=== PATIENT | female | born 1985 | race Two or more races ===

== ENCOUNTER → 2016-06-09 | Outpatient (CLI) | payer MEDICARE, OTHER, MEDICAID | LOC: RAD 08:00 | PROVIDERS: ATTEND Family Medicine | DX: R77.0 Abnormality of albumin (principal) | CPT/HCPCS: 76700; 93976 ==

== ENCOUNTER 2016-09-22 12:04 | Inpatient (IN) | payer MEDICARE, OTHER, MEDICAID ==
--- NOTE | 2016-09-22 13:14 | ER Document Report ---
ED Medical Screen (RME) - General Mode of Arrival: Wheelchair Information source: Relative - caretakers TRAVEL OUTSIDE OF THE [place] IN LAST 30 DAYS: No - HPI Patient complains to provider of: Fever and cough Onset: Yesterday Associated Symptoms: Other - see notes above <JUICE HIGGINS - Last Filed: 09/22/16 13:55> <BRITTNEY LOPEZ - Last Filed: 09/22/16 21:31> - General Chief Complaint: Fever Stated Complaint: CHEST CONGESTION Time Seen by Provider: 09/22/16 12:58 Notes: 30 year old female with history of epilepsy, cerebral palsy, and [place] presents to the ED accompanied with caregivers who state the patient started a productive cough with yellow sputum and a fever yesterday. Caregivers also state that the patient looks pale. Patient has not missed any of her medications. (JUICE HIGGINS) - Related Data Allergies/Adverse Reactions: Benzodiazepines Allergy (Verified 09/22/16 16:59) chloral hydrate [Chloral Hydrate] Allergy (Verified 09/22/16 16:59) topiramate [From Topamax] Allergy (Verified 09/22/16 16:59) Past Medical History - General Information source: Relative - caregivers, Outside Facility Records - Social History Family history: Reviewed & Not Pertinent - Past Medical History Cardiac Medical History: Reports: Hx Heart Attack Neurological Medical History: Reports: Hx Seizures, Other - cerebral palsy Renal/ Medical History: Denies: Hx Peritoneal Dialysis - Immunizations Hx Diphtheria, Pertussis, Tetanus Vaccination: Yes <JUICE HIGGINS - Last Filed: 09/22/16 13:55> Review of Systems - Review of Systems Constitutional: See HPI, Fever EENT: No symptoms reported Cardiovascular: No symptoms reported Respiratory: See HPI, Cough, Sputum - yellow Gastrointestinal: No symptoms reported Genitourinary: No symptoms reported Female Genitourinary: No symptoms reported Musculoskeletal: No symptoms reported Skin: See HPI, Change in color - pale Hematologic/Lymphatic: No symptoms reported Neurological/Psychological: No symptoms reported -: Yes All other systems reviewed and negative <JUICE HIGGINS - Last Filed: 09/22/16 13:55> Physical Exam - General General appearance: Alert, Other - baseline tremor In distress: None - Respiratory Respiratory status: No respiratory distress Breath sounds: Rhonchi - left upper lobe - Cardiovascular Rhythm: Regular Heart sounds: Normal auscultation Murmur: No Friction rub: No Gallop: None auscultated Pulses: Normal: Radial - Abdominal Inspection: Normal Distension: No distension Bowel sounds: Normal Tenderness: Nontender <JUICE HIGGINS - Last Filed: 09/22/16 13:55> Course - Laboratory Result Diagrams: 09/22/16 13:38 09/22/16 13:38 <JUICE HIGGINS - Last Filed: 09/22/16 13:55> - Laboratory Result Diagrams: 09/22/16 13:38 09/22/16 13:38 <BRITTNEY LOPEZ - Last Filed: 09/22/16 21:31> - Vital Signs Vital signs: Temp Pulse Resp BP Pulse Ox 100.4 F 113 H 24 H 104/70 95 09/22/16 16:40 09/22/16 17:41 09/22/16 17:41 09/22/16 17:41 09/22/16 17:41 - Laboratory Laboratory results interpreted by me: 09/22/16 09/22/16 13:38 13:38 WBC 19.6 H Plt Count 142 L Seg Neutrophils % 82.2 H Lymphocytes % 7.4 L Absolute Neutrophils 16.1 H Absolute Monocytes 1.9 H Albumin 3.2 L Doctor's Discharge <JUICE HIGGINS - Last Filed: 09/22/16 13:55> <BRITTNEY LOPEZ - Last Filed: 09/22/16 21:31> - Discharge Clinical Impression: Pneumonia Disposition: ADMITTED INPATIENT Scribe Documentation - Scribe Written by Rhona:: Rhona Calderón, 09/22/2016 1414 acting as scribe for DrMercedes:: Brian <JUICE HIGGINS - Last Filed: 09/22/16 13:55>
[2016-09-22 14:05] LABS: ABSOLUTE BASOPHILS # (AUTO) 0.1 10^3/uL (0.0-0.2); ABSOLUTE LYMPHOCYTES (AUTO) 1.5 10^3/uL (0.5-4.7); ABSOLUTE MONOCYTES (AUTO) 1.9 10^3/uL (0.1-1.4); ABSOLUTE NEUT (AUTO) 16.1 10^3/uL (1.7-8.2); BASOPHILS % (AUTO) 0.3 % (0-2); EOSINOPHILS % (AUTO) 0.2 % (0-6); HEMATOCRIT 40.1 % (36.0-47.0); HEMOGLOBIN 13.2 g/dL (12.0-15.5); HGB HCT DIFFERENCE -0.5; LYMPHOCYTES % (AUTO) 7.4 % (13-45); MEAN CORPUSCULAR VOLUME 97 fl (80-97); MONOCYTES % (AUTO) 9.9 % (3-13); RED BLOOD COUNT 4.13 10^6/uL (3.72-5.28); RED CELL DISTRIBUTION WIDTH 13.4 % (11.5-14.0); SEGMENTED NEUTROPHILS % (AUTO) 82.2 % (42-78); WHITE BLOOD COUNT 19.6 10^3/uL (4.0-10.5)
[2016-09-22 14:17] LABS: ALANINE AMINOTRANSFERASE 25 U/L (9-52); ALBUMIN 3.2 g/dL (3.5-5.0); ALKALINE PHOSPHATASE 46 U/L (38-126); ANION GAP 8 (5-19); ASPARTATE AMINO TRANSFERASE 20 U/L (14-36); BILIRUBIN,DIRECT 0.3 mg/dL (0.0-0.4); BILIRUBIN,TOTAL 0.5 mg/dL (0.2-1.3); BLOOD UREA NITROGEN 15 mg/dL (7-20); CALCIUM 8.5 mg/dL (8.4-10.2); CARBON DIOXIDE 26 mmol/L (22-30); CHLORIDE 104 mmol/L (98-107); CREATININE RESULT 0.54 mg/dL (0.52-1.25); GLUCOSE 85 mg/dL (75-110); POTASSIUM 4.6 mmol/L (3.6-5.0); SODIUM 137.5 mmol/L (137-145); TOTAL PROTEIN 6.6 g/dL (6.3-8.2)
--- NOTE | 2016-09-22 14:26 | RADIOLOGY REPORT (SQ) ---
EXAM DESCRIPTION: CHEST PA/LAT COMPLETED DATE/TIME: 09/22/2016 2:13 pm REASON FOR STUDY: cough, fever COMPARISON: 01/19/2016 EXAM PARAMETERS: NUMBER OF VIEWS: two views TECHNIQUE: Digital Frontal and Lateral radiographic views of the chest acquired. RADIATION DOSE: NA LIMITATIONS: none FINDINGS: LUNGS AND PLEURA: No opacities, masses or pneumothorax. No pleural effusion. MEDIASTINUM AND HILAR STRUCTURES: No masses or contour abnormalities. HEART AND VASCULAR STRUCTURES: Heart normal size. No evidence for failure. BONES: Stable mild thoracic scoliosis. No acute osseous abnormality. HARDWARE: None in the chest. OTHER: No other significant finding. IMPRESSION: NO SIGNIFICANT RADIOGRAPHIC FINDING IN THE CHEST. TECHNICAL DOCUMENTATION: JOB ID: [id number] [employer]- All Rights Reserved
[2016-09-22] MEDS ORDERED: ACETAMINOPHEN SUSP 160 MG/5 ML ORAL SYRING PO ONE (15:05)
--- NOTE | 2016-09-22 15:49 | ER Document Report ---
ED Fever - General Chief Complaint: Fever Stated Complaint: CHEST CONGESTION Time Seen by Provider: 09/22/16 12:58 Mode of Arrival: Wheelchair Notes: patient is a 30-year-old female presents emergency department complaining of cough, fever since yesterday. Care providers from her prison states that she had a presentation similar to this back in 2014 which required hospital admission. He states she has been tolerating room air without any difficulty but when she ambulates her sats dropped into the 80s. ROS positive for productive cough with yellow sputum, shortness of breath, dyspnea on exertion. Denies chest pain. Past medical history significant for developmental disability, cerebral palsy, dystonia, history of cerebrovascular accident, history of trichotillomania, pica PCP is Dr. Sanchez TRAVEL OUTSIDE OF THE [place] IN LAST 30 DAYS: No - Related Data Allergies/Adverse Reactions: Benzodiazepines Allergy (Verified 09/22/16 16:59) chloral hydrate [Chloral Hydrate] Allergy (Verified 09/22/16 16:59) topiramate [From Topamax] Allergy (Verified 09/22/16 16:59) Home Medications: Current Home Medications Cholecalciferol (Vitamin D3) [Vitamin D3 1000 Unit Tablet] 1,000 unit PO DAILY 09/22/16 [History] Divalproex Sodium [Depakote ER 500 mg Tab.sr] 500 mg PO DAILY 09/22/16 [History] Divalproex Sodium [Depakote Er 250 Mg Tablet] 750 mg PO QHS 09/22/16 [History] Fluticasone Propionate [Flonase Nasal Altus 50 Mcg/Altus 16 gm] 1 spray NASL Q12 PRN 09/22/16 [History] Fluvoxamine Maleate 50 mg PO QHS 09/22/16 [History] Levonorgestrel-Ethin Estradiol [Introvale] 1 each PO DAILY 09/22/16 [History] Polyethylene Glycol 3350 [Miralax Powder 17 gm/Packet] 1 packet PO Q48H [History] Prostat Sf Liquids 30 ml PO DAILY 09/22/16 [History] Quetiapine Fumarate [Seroquel 100 mg Tablet] 50 mg PO DAILY 09/22/16 [History] Quetiapine Fumarate [Seroquel 100 mg Tablet] 150 mg PO QHS 09/22/16 [History] Sennosides [Senokotxtra] 17.2 mg PO DAILY 09/22/16 [History] Valacyclovir HCl [Valtrex] 2,000 mg PO BID PRN 09/22/16 [History] Past Medical History - General Information source: Relative - caregivers, Outside Facility Records - Social History Smoking Status: Never Smoker Chew tobacco use (# tins/day): No Frequency of alcohol use: None Drug Abuse: None Family History: Reviewed & Not Pertinent Patient has suicidal ideation: No Patient has homicidal ideation: No - Past Medical History Cardiac Medical History: Reports: Hx Heart Attack Pulmonary Medical History: Reports: Hx Pneumonia Neurological Medical History: Reports: Hx Seizures, Other - cerebral palsy Renal/ Medical History: Denies: Hx Peritoneal Dialysis - Immunizations Hx Diphtheria, Pertussis, Tetanus Vaccination: Yes Review of Systems - Review of Systems -: Yes ROS unobtainable due to patient's medical condition Physical Exam - Vital signs Vitals: Pulse Resp BP Pulse Ox 85 22 H 108/84 92 09/22/16 12:46 09/22/16 12:46 09/22/16 12:46 09/22/16 12:46 - Notes Notes: PHYSICAL EXAM GENERAL: Alert, interacts well. HEAD: Normocephalic, atraumatic. EYES: Pupils equal, round, and reactive to light. Extraocular movements intact. ENT: Oral mucosa moist, tongue midline. NECK: Full range of motion. Supple. Trachea midline. LUNGS: Bilateral rhonchi without wheezing or rales. No respiratory distress. HEART: Regular rate and rhythm. No murmurs, gallops, or rubs. ABDOMEN: Soft, nondistended, nontender. No guarding, rebound, or rigidity.. Bowel sounds present in all 4 quadrants. EXTREMITIES: Moves all 4 extremities spontaneously. No edema, radial and dorsalis pedis pulses 2/4 bilaterally. No cyanosis. NEUROLOGICAL: Alert and oriented to person. SKIN: Warm, dry, normal turgor. No rashes or lesions noted. Course - Re-evaluation Re-evalutation: 09/22/16 19:42 Patient is a 30-year-old female hemodynamic stable, no acute distress and afebrile. Initial rectal temp of 103.4. Patient medicated with Tylenol intent came down to 100.4. Patient with leukocytosis of 19.4. No evidence of consolidation on x-ray. Discussion with PCP given patient's past medical history for severe pneumonia and risk for hospital-acquired pneumonia, Dr. Sanchez agrees with inpatient admission and initiation on IV antibiotics. - Vital Signs Vital signs: Temp Pulse Resp BP Pulse Ox 100.4 F 113 H 24 H 104/70 95 09/22/16 16:40 09/22/16 17:41 09/22/16 17:41 09/22/16 17:41 09/22/16 17:41 - Laboratory Result Diagrams: 09/22/16 13:38 09/22/16 13:38 Laboratory results interpreted by me: 09/22/16 09/22/16 13:38 13:38 WBC 19.6 H Plt Count 142 L Seg Neutrophils % 82.2 H Lymphocytes % 7.4 L Absolute Neutrophils 16.1 H Absolute Monocytes 1.9 H Albumin 3.2 L - Diagnostic Test Radiology reviewed: Image reviewed, Reports reviewed - Consults ramón Time consulted: 15:48 Reason for consultation: 09/22/16 15:49 hospital admission for pneumonia Consulted provider: will see as inpatient Discharge - Discharge Clinical Impression: Pneumonia Qualifiers: Pneumonia type: due to unspecified organism Disposition: ADMITTED INPATIENT Admitting Provider: Ramón Unit Admitted: Telemetry
[2016-09-22] MEDS ORDERED: IPRATROPIUM/ALBUTEROL 0.5-2.5 MG/3 ML AMPUL NEB ONE (15:54)
[2016-09-22] MEDS ORDERED: CEFEPIME 2 GM/D5W RTU 50 ML IV ONE (16:09)
[2016-09-22] MEDS ORDERED: AZITHROMYCIN INJ 500 MG VIAL IV ONE (16:09)
[2016-09-22] MEDS ORDERED: GUAIFENESIN 600 MG TABLET.SA PO ONE (16:10)
[2016-09-22] MEDS ORDERED: ALBUTEROL SULFATE 0.083% NEB 2.5 MG/3 ML AMPUL NEB PRN (16:10)
[2016-09-22] MEDS ORDERED: IPRATROPIUM/ALBUTEROL 0.5-2.5 MG/3 ML AMPUL NEB PRN (16:11)
[2016-09-22] MEDS ORDERED: ACETAMINOPHEN 325 MG TABLET PO PRN (16:11)
[2016-09-22] MEDS ORDERED: NORMAL SALINE 1000 ML 1,000 ML IV PRN (16:11)
[2016-09-22] MEDS ORDERED: FLUTICASONE NASAL SPRAY 50 MCG/SPRY 120 SPRAY/16 GM NASL PRN (17:28)
[2016-09-22] MEDS ORDERED: VALACYCLOVIR HCL 2000 MG PO PRN (17:28)
--- NOTE | 2016-09-22 17:53 | PDOC H&P ---
History of Present Illness Admission Date/PCP: PAUL HIGGINS MD Patient complains of: Fever and cough History of Present Illness: DILLON YAP is a 30 yearThis is a 30-year-old female [facility] with the history of the cerebral palsy mental retardation brought to the emergency department because of the fever and the cough.Initially nursing staff called me about the Patient is Increasing more cough and a fever and and suggest to the emergency department. In the ER patient's fever is 103 patient's chest x-ray was clear the patient's white count was 19 which he suggest most likely underlying pneumonia Past Medical History Pulmonary Medical History: Reports: Pneumonia Neurological Medical History: Reports: Seizures, Other - cerebral palsy Neurological History Note: mental retardation/cebereal plasy GI Medical History: Reports: Gastroesophageal Reflux Disease Social History Smoking Status: Never Smoker Frequency of Alcohol Use: None Hx Recreational Drug Use: No Hx Prescription Drug Abuse: No Family History Family History: Reviewed & Not Pertinent Parental Family History Reviewed: Yes Children Family History Reviewed: Yes Sibling(s) Family History Reviewed.: Yes Medication/Allergy Home Medications: Cholecalciferol (Vitamin D3) [Vitamin D3 1000 Unit Tablet] 1,000 unit PO DAILY 09/22/16 Divalproex Sodium [Depakote ER 500 mg Tab.sr] 500 mg PO DAILY 09/22/16 Divalproex Sodium [Depakote Er 250 Mg Tablet] 750 mg PO QHS 09/22/16 Fluticasone Propionate [Flonase Nasal Hessel 50 Mcg/Hessel 16 gm] 1 spray NASL Q12 PRN 09/22/16 Fluvoxamine Maleate 50 mg PO QHS 09/22/16 Levonorgestrel-Ethin Estradiol [Introvale] 1 each PO DAILY 09/22/16 Polyethylene Glycol 3350 [Miralax Powder 17 gm/Packet] 1 packet PO Q48H Prostat Sf Liquids 30 ml PO DAILY 09/22/16 Quetiapine Fumarate [Seroquel 100 mg Tablet] 50 mg PO DAILY 09/22/16 Quetiapine Fumarate [Seroquel 100 mg Tablet] 150 mg PO QHS 09/22/16 Sennosides [Senokotxtra] 17.2 mg PO DAILY 09/22/16 Valacyclovir HCl [Valtrex] 2,000 mg PO BID PRN 09/22/16 Allergies/Adverse Reactions: Benzodiazepines Allergy (Verified 09/22/16 16:59) chloral hydrate [Chloral Hydrate] Allergy (Verified 09/22/16 16:59) topiramate [From Topamax] Allergy (Verified 09/22/16 16:59) Physical Exam Vital Signs: Temp Pulse Resp BP Pulse Ox 103.4 F H 85 22 H 108/84 92 09/22/16 15:05 09/22/16 12:46 09/22/16 12:46 09/22/16 12:46 09/22/16 12:46 Intake & Output 09/21/16 09/22/16 09/23/16 06:59 06:59 06:59 Weight 53.977 kg General appearance: PRESENT: no acute distress Eye exam: PRESENT: PERRLA Mouth exam: PRESENT: dry mucosa Neck exam: ABSENT: carotid bruit, full ROM, JVD, lymphadenopathy, meningismus, tenderness, thyromegaly, tracheal deviation, tracheostomy, other Respiratory exam: PRESENT: clear to auscultation merari Cardiovascular exam: PRESENT: +S1, +S2 GI/Abdominal exam: PRESENT: normal bowel sounds, soft Extremities exam: ABSENT: pedal edema Neurological exam: PRESENT: alert, awake Psychiatric exam: PRESENT: anxious Skin exam: PRESENT: dry Results Laboratory Results: 09/22/16 13:38 09/22/16 13:38 09/22/16 09/22/16 13:38 13:38 WBC 19.6 H RBC 4.13 Hgb 13.2 Hct 40.1 MCV 97 MCH 32.0 MCHC 33.0 RDW 13.4 Plt Count 142 L Seg Neutrophils % 82.2 H Lymphocytes % 7.4 L Monocytes % 9.9 Eosinophils % 0.2 Basophils % 0.3 Absolute Neutrophils 16.1 H Absolute Lymphocytes 1.5 Absolute Monocytes 1.9 H Absolute Eosinophils 0.0 Absolute Basophils 0.1 Sodium 137.5 Potassium 4.6 Chloride 104 Carbon Dioxide 26 Anion Gap 8 BUN 15 Creatinine 0.54 Est GFR ( Amer) > 60 Est GFR (Non-Af Amer) > 60 Glucose 85 Calcium 8.5 Total Bilirubin 0.5 AST 20 ALT 25 Alkaline Phosphatase 46 Total Protein 6.6 Albumin 3.2 L Impressions: Chest X-Ray 09/22/16 13:14 IMPRESSION: NO SIGNIFICANT RADIOGRAPHIC FINDING IN THE CHEST. Assessment & Plan - Diagnosis (1) Fever Qualifiers: Fever type: unspecified Qualified Code(s): R50.9 - Fever, unspecified Is this a current diagnosis for this admission?: YesPlan: start iv antibiotics We will get the blood culture urine culture and sputum culture and continues to monitor the patient's (2) Pneumonia Qualifiers: Pneumonia type: due to unspecified organism Is this a current diagnosis for this admission?: YesPlan: According to the caregiver patient is not aspirate and other people also sick with the same problem. Will start with the broad-spectrum antibiotic and try to avoid the Levaquin due to the seizures activity but patients took it in the past and according to the caregiver no issue but will cover with the cefepime and Zithromax right now. We will also get the CT of the chest (3) Mental retardation Plan: Currently stable (4) Seizures Is this a current diagnosis for this admission?: YesPlan: Continues all current seizures medications - Time Time Spent: 30 to 50 Minutes Medications reviewed and adjusted accordingly: Yes Anticipated discharge: Other - Inpatient Certification Medical Necessity: Need For IV Fluids, Need for IV Antibiotics Post Hospital Care: D/C Civil Preparedness Coordinator Documentation - Plan Summary Plan Summary: Discussed with the caregiver who usually taking care [facility] the patient in the [facility] and get all information's and discuss about the treatment and the plan and they will deliver the message to the patient's sisters who usually next to the patient's and will talk to her to.
[2016-09-22] MEDS ORDERED: POLYETHYLENE GLYCOL 3350 POWDER 17 GM/1 PACKET PO ONE (19:00)
[2016-09-22] MEDS ORDERED: DIVALPROEX SODIUM 500 MG TAB.SR.24H PO ONE (19:00)
--- NOTE | 2016-09-22 19:05 | RADIOLOGY REPORT (SQ) ---
EXAM DESCRIPTION: CT CHEST WITHOUT COMPLETED DATE/TIME: 09/22/2016 6:55 pm REASON FOR STUDY: fever/cough COMPARISON: Chest radiograph 09/22/2016 TECHNIQUE: CT scan performed of the chest without intravenous contrast. Images reviewed with lung, soft tissue and bone windows. Reconstructed coronal and sagittal MPR images reviewed. All images st ored on PACS. All CT scanners at this facility use dose modulation, iterative reconstruction, and/or weight based d osing when appropriate to reduce radiation dose to as low as reasonably achievable (ALARA). [facility]: Dose Right [facility]: CareDose [facility]: Dose Right [facility]: Teradose 4D [facility]: Smart Mobibeam RADIATION DOSE: Up-to-date CT equipment and radiation dose reduction techniques were employed. CTDIv ol: 8.5 mGy. DLP: 297 mGy-cm. mGy. LIMITATIONS: No technical limitations. FINDINGS: LUNGS AND PLEURA: Minimal linear parenchymal opacity in the right middle lobe. Lungs othe rwise clear. HILAR AND MEDIASTINAL STRUCTURES: No identified masses or abnormal nodes. No obvious aneurysm. HEART AND VASCULAR STRUCTURES: No aneurysm. No pericardial effusion. UPPER ABDOMEN: No significant findings. Limited exam. THYROID AND OTHER SOFT TISSUES: No masses. No adenopathy. BONES: No significant finding. HARDWARE: None in the chest. OTHER: No other significant findings. IMPRESSION: Right middle lobe pneumonia. TECHNICAL DOCUMENTATION: JOB ID: [id number] Quality ID # [id number]: Final reports with documentation of one or more dose reduction techniques (e.g., Au tomated exposure control, adjustment of the mA and/or kV according to patient size, use of iterative reconstruction technique) 2010 [employer]- All Rights Reserved
[2016-09-22] MEDS ORDERED: FLUVOXAMINE MALEATE 50 MG PO SCH (22:00)
[2016-09-22] MEDS ORDERED: VALACYCLOVIR HCL 500 MG TABLET PO SCH (22:00)
[2016-09-22] MEDS ORDERED: VALACYCLOVIR HCL 500 MG TABLET ONE (23:05)
[2016-09-22] MEDS: GUAIFENESIN 600 MG TABLET.SA PO SCH (23:19)
[2016-09-22] MEDS: QUETIAPINE FUMARATE 100 MG TABLET PO SCH (23:19)
[2016-09-23] MEDS: CEFEPIME HCL 1 GM in DEXTROSE 5%-WATER 50 ML IV SCH ×2 (05:34→17:12)
[2016-09-23] MEDS ORDERED: CEFEPIME 1 GM/D5W RTU 50 ML IV SCH (06:00)
[2016-09-23 07:35] LABS: ABSOLUTE EOSINOPHILS # (AUTO) 0.1 10^3/uL (0.0-0.6); ABSOLUTE MONOCYTES (AUTO) 1.1 10^3/uL (0.1-1.4); ABSOLUTE NEUT (AUTO) 11.4 10^3/uL (1.7-8.2); BASOPHILS % (AUTO) 0.3 % (0-2); EOSINOPHILS % (AUTO) 0.8 % (0-6); HEMATOCRIT 32.8 % (36.0-47.0); HGB HCT DIFFERENCE 0.5; LYMPHOCYTES % (AUTO) 13.6 % (13-45); MEAN CORPUSCULAR HEMOGLOBIN 32.4 pg (27.0-33.4); MEAN CORPUSCULAR HGB CONC 33.7 g/dL (32.0-36.0); MEAN CORPUSCULAR VOLUME 96 fl (80-97); MONOCYTES % (AUTO) 7.7 % (3-13); RED BLOOD COUNT 3.42 10^6/uL (3.72-5.28); RED CELL DISTRIBUTION WIDTH 13.1 % (11.5-14.0); SEGMENTED NEUTROPHILS % (AUTO) 77.6 % (42-78); WHITE BLOOD COUNT 14.7 10^3/uL (4.0-10.5)
[2016-09-23 07:40] LABS: HEMOGLOBIN 11.1 g/dL (12.0-15.5)
[2016-09-23 07:50] LABS: ANION GAP 7 (5-19); BLOOD UREA NITROGEN 13 mg/dL (7-20); CALCIUM 7.7 mg/dL (8.4-10.2); CARBON DIOXIDE 23 mmol/L (22-30); CHLORIDE 107 mmol/L (98-107); CREATININE RESULT 0.47 mg/dL (0.52-1.25); GLUCOSE 83 mg/dL (75-110); POTASSIUM 4.2 mmol/L (3.6-5.0); SODIUM 136.6 mmol/L (137-145)
[2016-09-23] MEDS: ENOXAPARIN SODIUM INJ 40 MG/0.4 ML DISP.SYRIN SUBCUT SCH (09:06)
[2016-09-23] MEDS: QUETIAPINE FUMARATE 100 MG TABLET PO SCH ×2 (09:07→21:53)
[2016-09-23] MEDS: AZITHROMYCIN 250 MG TABLET PO SCH (09:07)
[2016-09-23] MEDS: SENNOSIDES/DOCUSATE 8.6-50 MG 1 EACH TABLET PO SCH (09:07)
[2016-09-23] MEDS: CHOLECALCIFEROL (D3) 1,000 UNIT TABLET PO SCH (09:08)
[2016-09-23] MEDS: DIVALPROEX SODIUM 500 MG TAB.SR.24H PO SCH (09:08)
[2016-09-23] MEDS: GUAIFENESIN 600 MG TABLET.SA PO SCH ×2 (09:08→21:53)
[2016-09-23] MEDS ORDERED: (PENDING PHARMACY ID) (Sennosides [Senokot] 17.2 MG) PO SCH (10:00)
[2016-09-23] MEDS ORDERED: LEVONORGESTREL ETHIN ESTRADIOL PO SCH (10:00)
[2016-09-23] MEDS ORDERED: [UNRECOGNIZED DRUG - REMARK] PO SCH (10:00)
[2016-09-23] MEDS ORDERED: LORAZEPAM INJ 2 MG/1 ML VIAL ONE ×2 (11:06→20:31)
[2016-09-23] MEDS ORDERED: HALOPERIDOL LACTATE INJ 5 MG/1 ML VIAL ONE (11:13)
[2016-09-23] MEDS ORDERED: HALOPERIDOL LACTATE INJ 5 MG/1 ML VIAL IM ONE (11:45)
--- NOTE | 2016-09-23 12:36 | PDOC PROGRESS REPORT ---
Subjective Progress Note for:: 09/23/16 Subjective:: Patient's currently doing fair still more agitated with the new environment. Patient's fever is also coming down. Patient's white count is also coming down. Patient is alert awake but very anxious Physical Exam Vital Signs: Temp Pulse Resp BP Pulse Ox 98.4 F 147 H 25 H 94/66 L 96 09/23/16 03:48 09/23/16 11:09 09/23/16 11:09 09/23/16 03:48 09/23/16 03:48 Intake & Output 09/22/16 09/23/16 09/24/16 06:59 06:59 06:59 Intake Total 200 Balance 200 Weight 66 kg General appearance: PRESENT: no acute distress Eye exam: PRESENT: PERRLA Mouth exam: PRESENT: neck supple Respiratory exam: PRESENT: clear to auscultation emrari Cardiovascular exam: PRESENT: +S1, +S2 GI/Abdominal exam: PRESENT: normal bowel sounds, soft. ABSENT: tenderness Neurological exam: PRESENT: alert, awake Psychiatric exam: PRESENT: anxious Skin exam: PRESENT: dry Results Laboratory Results: 09/23/16 07:27 09/23/16 07:27 09/22/16 09/23/16 09/23/16 20:24 00:43 07:27 WBC 14.7 H RBC 3.42 L Hgb 11.1 L D Hct 32.8 L MCV 96 MCH 32.4 MCHC 33.7 RDW 13.1 Plt Count 112 L Seg Neutrophils % 77.6 Lymphocytes % 13.6 Monocytes % 7.7 Eosinophils % 0.8 Basophils % 0.3 Absolute Neutrophils 11.4 H Absolute Lymphocytes 2.0 Absolute Monocytes 1.1 Absolute Eosinophils 0.1 Absolute Basophils 0.0 Sodium Potassium Chloride Carbon Dioxide Anion Gap BUN Creatinine Est GFR ( Amer) Est GFR (Non-Af Amer) Glucose Lactic Acid 2.5 H 1.3 Calcium 09/23/16 07:27 WBC RBC Hgb Hct MCV MCH MCHC RDW Plt Count Seg Neutrophils % Lymphocytes % Monocytes % Eosinophils % Basophils % Absolute Neutrophils Absolute Lymphocytes Absolute Monocytes Absolute Eosinophils Absolute Basophils Sodium 136.6 L Potassium 4.2 Chloride 107 Carbon Dioxide 23 Anion Gap 7 BUN 13 Creatinine 0.47 L Est GFR ( Amer) > 60 Est GFR (Non-Af Amer) > 60 Glucose 83 Lactic Acid Calcium 7.7 L Impressions: Chest CT 09/22/16 00:00 IMPRESSION: Right middle lobe pneumonia. Chest X-Ray 09/22/16 13:14 IMPRESSION: NO SIGNIFICANT RADIOGRAPHIC FINDING IN THE CHEST. Assessment & Plan - Diagnosis (1) Fever Qualifiers: Fever type: unspecified Qualified Code(s): R50.9 - Fever, unspecified Is this a current diagnosis for this admission?: YesPlan: Continues to IV cefepime and Zithromax due to the right-sided pneumonia (2) Pneumonia Qualifiers: Pneumonia type: due to unspecified organism Is this a current diagnosis for this admission?: YesPlan: Continues to IV antibiotic (3) Mental retardation Plan: Currently stable (4) Seizures Is this a current diagnosis for this admission?: YesPlan: Continues all current seizures medications - Time Time Spent with patient: 15-24 minutes Medications reviewed and adjusted accordingly: Yes Anticipated discharge: SNF Within: Other - Inpatient Certification Medical Necessity: Need For IV Fluids, Need for IV Antibiotics Post Hospital Care: D/C Hardener Helper Documentation - Plan Summary Plan Summary: Discussed with the caregiver continues to IV antibiotic patients quite bit agitated and required a some Haldol or some other medications.
[2016-09-23] MEDS ORDERED: HALOPERIDOL LACTATE INJ 5 MG/1 ML VIAL IM PRN (13:22)
[2016-09-23] MEDS ORDERED: VALACYCLOVIR HCL 500 MG TABLET PO ONE (15:00)
[2016-09-23] MEDS: SULFAMETHOXAZOLE/TRIMETHOPRIM 800-160 MG TABLET PO SCH (17:13)
[2016-09-23] MEDS ORDERED: LORAZEPAM INJ 2 MG/1 ML VIAL IM PRN (20:20)
[2016-09-23] MEDS ORDERED: DIPHENHYDRAMINE HCL 25 MG CAPSULE PO PRN (20:25)
[2016-09-24] MEDS: CEFEPIME HCL 1 GM in DEXTROSE 5%-WATER 50 ML IV SCH (05:50)
[2016-09-24] MEDS ORDERED: CEFEPIME HCL 1 GM in DEXTROSE 5%-WATER 50 ML IV ONE (07:30)
[2016-09-24 08:36] LABS: ABSOLUTE EOSINOPHILS # (AUTO) 0.1 10^3/uL (0.0-0.6); ABSOLUTE LYMPHOCYTES (AUTO) 1.8 10^3/uL (0.5-4.7); ABSOLUTE NEUT (AUTO) 6.4 10^3/uL (1.7-8.2); BASOPHILS % (AUTO) 0.3 % (0-2); EOSINOPHILS % (AUTO) 1.1 % (0-6); HEMATOCRIT 33.5 % (36.0-47.0); HEMOGLOBIN 11.2 g/dL (12.0-15.5); HGB HCT DIFFERENCE 0.1; MEAN CORPUSCULAR HEMOGLOBIN 32.5 pg (27.0-33.4); MEAN CORPUSCULAR HGB CONC 33.4 g/dL (32.0-36.0); MEAN CORPUSCULAR VOLUME 97 fl (80-97); MONOCYTES % (AUTO) 10.8 % (3-13); RED BLOOD COUNT 3.44 10^6/uL (3.72-5.28); RED CELL DISTRIBUTION WIDTH 13.5 % (11.5-14.0); SEGMENTED NEUTROPHILS % (AUTO) 68.8 % (42-78); WHITE BLOOD COUNT 9.3 10^3/uL (4.0-10.5)
[2016-09-24 08:44] LABS: ANION GAP 9 (5-19); BLOOD UREA NITROGEN 10 mg/dL (7-20); CALCIUM 7.9 mg/dL (8.4-10.2); CARBON DIOXIDE 22 mmol/L (22-30); CHLORIDE 104 mmol/L (98-107); CREATININE RESULT 0.52 mg/dL (0.52-1.25); GLUCOSE 77 mg/dL (75-110); POTASSIUM 4.1 mmol/L (3.6-5.0); SODIUM 134.8 mmol/L (137-145)
[2016-09-24] MEDS ORDERED: POLYETHYLENE GLYCOL 3350 POWDER 17 GM/1 PACKET PO SCH (10:00)
[2016-09-24] MEDS: QUETIAPINE FUMARATE 100 MG TABLET PO SCH (10:04)
[2016-09-24] MEDS: CHOLECALCIFEROL (D3) 1,000 UNIT TABLET PO SCH (10:06)
[2016-09-24] MEDS: AZITHROMYCIN 250 MG TABLET PO SCH (10:06)
[2016-09-24] MEDS: DIVALPROEX SODIUM 500 MG TAB.SR.24H PO SCH (10:06)
[2016-09-24] MEDS: SULFAMETHOXAZOLE/TRIMETHOPRIM 800-160 MG TABLET PO SCH (10:06)
[2016-09-24] MEDS: SENNOSIDES/DOCUSATE 8.6-50 MG 1 EACH TABLET PO SCH (10:06)
[2016-09-24] MEDS: GUAIFENESIN 600 MG TABLET.SA PO SCH (10:06)
[2016-09-24] MEDS: ENOXAPARIN SODIUM INJ 40 MG/0.4 ML DISP.SYRIN SUBCUT SCH (10:11)
--- NOTE | 2016-09-24 10:57 | RADIOLOGY REPORT (SQ) ---
EXAM DESCRIPTION: CHEST SINGLE VIEW COMPLETED DATE/TIME: 09/24/2016 9:04 am REASON FOR STUDY: pnemonia COMPARISON: CT chest 09/22/2016 Chest films 03/14/2015, 01/19/2016, 09/22/2016 EXAM PARAMETERS: NUMBER OF VIEWS: One view. TECHNIQUE: Single frontal radiographic view of the chest acquired. RADIATION DOSE: NA LIMITATIONS: None. FINDINGS: LUNGS AND PLEURA: No opacities, masses or pneumothorax. No pleural effusion. MEDIASTINUM AND HILAR STRUCTURES: No masses. Contour normal. HEART AND VASCULAR STRUCTURES: Heart normal in size. Normal vasculature. BONES: No acute findings. HARDWARE: None in the chest. OTHER: No other significant finding. IMPRESSION: NO ACUTE RADIOGRAPHIC FINDING IN THE CHEST. TECHNICAL DOCUMENTATION: JOB ID: [id number]
--- NOTE | 2016-09-24 14:31 | PDOC TRANSFER SUMMARY ---
General - Admit/Disc Date/PCP Admission Date/Primary Care Provider: 09/22/16 16:11 PAUL HIGGINS MD Discharge Date: 09/24/16 - Discharge Diagnosis (1) Fever Is this a current diagnosis for this admission?: YesSummary: From the pneumonia all resolved (2) Pneumonia Is this a current diagnosis for this admission?: YesSummary: Patient's finished the 48 hours IV antibiotic and patient's sister willing to take [facility] the [facility] where the patient is to feel more comfortable and not agitated as in the hospital and the patient is currently no fever and chest x-ray is more clear and the discharge to the p.o. antibiotic and a close monitor and is discussed with the care will nurses staff (4) Seizures Is this a current diagnosis for this admission?: YesSummary: Continue his current medications - Additional Information Resuscitation Status: Full Code Discharge Diet: Regular Discharge Activity: Activity As Tolerated Home Medications: Cholecalciferol (Vitamin D3) [Vitamin D3 1000 Unit Tablet] 1,000 unit PO DAILY 09/22/16 Divalproex Sodium [Depakote ER 250 mg Tablet] 750 mg PO QHS 09/22/16 Divalproex Sodium [Depakote ER 500 mg Tab.sr] 500 mg PO DAILY 09/22/16 Fluticasone Propionate [Flonase Nasal Gays 50 Mcg/Gays 16 gm] 1 spray NAREB Q12HP PRN 09/22/16 Fluvoxamine Maleate 50 mg PO QHS 09/22/16 Levonorgestrel-Ethin Estradiol [Introvale 0.15-0.03 mg Tablet] 1 each PO DAILY 09/22/16 Polyethylene Glycol 3350 [Miralax Powder 17 gm/Packet] 1 packet PO Q48H PRN Prostat Sf Liquids 30 ml PO DAILY 09/22/16 Quetiapine Fumarate [Seroquel 100 mg Tablet] 150 mg PO QHS 09/22/16 Quetiapine Fumarate [Seroquel] 50 mg PO DAILY@1400 09/22/16 Sennosides [Senokot] 17.2 mg PO DAILY 09/22/16 Valacyclovir HCl [Valtrex] 2,000 mg PO Q12HP PRN 09/22/16 Azithromycin [Zithromax 250 mg Tablet] 250 mg PO DAILY #3 tablet 09/24/16 Guaifenesin [Mucinex Sr 600 mg Tablet.sa] 600 mg PO Q12 #0 tablet.sa 09/24/16 Sulfamethoxazole/Trimethoprim [Septra-Ds 800-160 mg Tablet] 1 tab PO BID #14 tablet 09/24/16 History of Present Illness Admission Date/PCP: 09/22/16 16:11 PAUL HIGGINS MD History of Present Illness: DILLON YAP is a 30 yearThis is a 30-year-old female [facility] with the history of the cerebral palsy mental retardation brought to the emergency department because of the fever and the cough.Initially nursing staff called me about the Patient is Increasing more cough and a fever and and suggest to the emergency department. In the ER patient's fever is 103 patient's chest x-ray was clear the patient's white count was 19 which he suggest most likely underlying pneumonia Hospital Course Hospital Course: This is a 30-year-old female presented in the emergency department with cough congestion's and the fever and elevated white count and a CT of the chest was done was consistent with the right-sided middle lobe pneumonia. Patient will start on IV cefepime and Zithromax and the patient responds very well with the pneumonia. Patient's white count is normal and the patient's chest x-ray is also stable and patient's fever free. In the hospital patient was very agitated and initially the patient's sisters want to send back to the penitentiary in a very extended discussion with sister about at least give a 48 hours IV antibiotic before the patient's was sent out and white count is getting better and the patient's currently after that feeling much better and as per the patient's family and the patient is currently doing stable we will discharge back to the penitentiary where they can closely monitor the patient and the p.o. antibiotic Patient's heart rate was elevated and seen by cardiology which is related to the more from agitations and the fever which is currently all stable and according to the cardiology no need for further evaluations Discussed with the sister with extensively about all the test results and the plan and the discussed with the [facility] nursing staff and continues to monitor the patient's Use Mucinex twice a day and the Bactrim DS for 7 days Following a one-week repeat the chest x-ray and a CBC If any increasing any fever and increasing any cough or any shortness of breath is to bring it back in the ER Physical Exam Vital Signs: Temp Pulse Resp BP Pulse Ox 98.2 F 74 14 97/43 L 100 09/24/16 05:27 09/24/16 08:00 09/24/16 08:00 09/24/16 05:27 09/24/16 05:27 Intake & Output 09/23/16 09/24/16 09/25/16 06:59 06:59 06:59 Intake Total 200 175 Balance 200 175 Weight 66 kg General appearance: PRESENT: no acute distress Eye exam: PRESENT: PERRLA Respiratory exam: PRESENT: clear to auscultation merari Cardiovascular exam: PRESENT: +S1, +S2 GI/Abdominal exam: PRESENT: normal bowel sounds, soft. ABSENT: tenderness Musculoskeletal exam: PRESENT: ambulatory Neurological exam: PRESENT: alert, awake Skin exam: PRESENT: dry Results Laboratory Results: 09/24/16 07:52 09/24/16 07:52 09/24/16 09/24/16 09/24/16 07:52 07:52 07:52 WBC 9.3 RBC 3.44 L Hgb 11.2 L Hct 33.5 L MCV 97 MCH 32.5 MCHC 33.4 RDW 13.5 Plt Count 123 L Seg Neutrophils % 68.8 Lymphocytes % 19.0 Monocytes % 10.8 Eosinophils % 1.1 Basophils % 0.3 Absolute Neutrophils 6.4 Absolute Lymphocytes 1.8 Absolute Monocytes 1.0 Absolute Eosinophils 0.1 Absolute Basophils 0.0 Sodium 134.8 L Potassium 4.1 Chloride 104 Carbon Dioxide 22 Anion Gap 9 BUN 10 Creatinine 0.52 Est GFR ( Amer) > 60 Est GFR (Non-Af Amer) > 60 Glucose 77 Lactic Acid 1.4 Calcium 7.9 L 09/23/16 03:20 Nasophary (Mrsa Only) MRSA Surveillance Culture - Final NO MRSA RECOVERED Impressions: Chest CT 09/22/16 00:00 IMPRESSION: Right middle lobe pneumonia. Chest X-Ray 09/24/16 06:00 IMPRESSION: NO ACUTE RADIOGRAPHIC FINDING IN THE CHEST. Transfer Plan - Time Spent with Patient Time spent with patient: Greater than 30 Minutes Plan Time Spent: Greater than 30 Minutes - Patient's [facility] the [facility] continues to be on antibiotic continues to monitor the oxygen level and following a 1 week in the office
[2016-09-24 15:26] VITALS: BP 145/81
--- NOTE | 2016-09-24 17:52 | EKG REPORT ---
SEVERITY:- BORDERLINE ECG - SINUS TACHYCARDIA PROBABLE LEFT ATRIAL ABNORMALITY IRBBB : Confirmed by: Modesta Richard 24-Sep-2016 17:52:30
--- NOTE | 2016-09-25 04:04 | CONSULTATION REPORT E ---
Consultation Report NAME: DILLON YAP : 1985 AGE: 30Y DATE: 09/24/2016 429 A TO: ARMANI IBRAHIM M.D. FROM: PAUL HIGGINS M.D. Requesting Physician REASON FOR CONSULTATION: Tachycardia (sinus tachycardia). HISTORY OF PRESENT ILLNESS: The patient is a 30-year-old female, who has a history of cerebral palsy, mental retardation, history of seizures, history of anxiety and panic attacks, was brought to the hospital due to a temperature of 103 degrees Fahrenheit with chills and rigors and also a cough, which is nonproductive. Of note, the patient is mentally retarded. History obtained from the patient's sister who is the healthcare power of trade mark attorney. The patient is FULL CODE. As per the sister, this 30-year-old since one day prior to admission had symptoms of fevers, chills and rigors with temperature up to 102 degrees Fahrenheit and also she had a cough, which was nonproductive. There was no wheezing. She was started on antibiotics for probable pneumonia, although her chest x-ray was clear. Yesterday, the patient's heart rate was in the 130s and at one time the sister states the patient had a panic attack and the heart rate went up to 190s, which would suggest it is sinus tachycardia. There are no complaints of chest pain according to the sister, although it is very hard to communicate with the patient. Review of the monitor shows no arrhythmias, except for sinus tachycardia. PAST MEDICAL HISTORY: Positive for: 1. History of pneumonia in the past. 2. History of seizures. 3. History of cerebral palsy. 4. History of mental retardation. 5. She also has history of gastroesophageal reflux disease. 6. History of anxiety present. 7. History of panic attacks. No history of hypertension, diabetes mellitus, coronary artery disease, congestive heart failure, arrhythmias or syncope. No recent seizures. No history of TIA or CVA. PAST SURGICAL HISTORY: Negative. SOCIAL HISTORY: The patient does not smoke. FAMILY HISTORY: No major illnesses in the family as per the sister. ALLERGIES: The patient is allergic to BENZODIAZEPINE, CHLORAL HYDRATE, TOPIRAMATE. CODE STATUS: The patient is FULL CODE. Her sister is healthcare power of trade mark attorney. MEDICATIONS: 1. Vitamin D3 1000 units p.o. daily. 2. Depakote ER 500 mg tablet p.o. daily in the morning and 750 mg at bedtime. This is an extended release. 3. Flonase nasal spray 50 mcg, 1 spray nasally q.12 hours p.r.n. 4. Fluvoxamine maleate 50 mg p.o. at bedtime. 5. Introvale 1 p.o. daily. 6. Polythene glycol 350. 7. MiraLax 17 grams per packet, 1 packet p.o. q.48 hours. 8. Pro-Stat SF liquid 30 mL p.o. daily. 9. Seroquel 100 mg tablet, 50 mg p.o. daily in the a.m. and 150 mg p.o. at bedtime. 10. *------* 17.2 mg p.o. daily. 11. Valtrex 2000 mg p.o. b.i.d. p.r.n. REVIEW OF SYSTEMS: CONSTITUTIONAL: Difficult to obtain, according to the sister, the patient has been having fevers, chills and rigors. There are no headaches or head injury. HEENT: Eyes: No history of blindness or amaurosis fugax. Ears: No history of hearing loss, no history of recurrent ear infections. Nose: Occasional nasal allergies. No history of nosebleeds. LUNGS: Positive for cough without wheezing and without any sputum production. The patient has past history of pneumonia. No history of sleep apnea. No history of asthma or COPD. CARDIAC: No history of hypertension. No history of congestive heart failure. No history of coronary artery disease. No history of palpitations or syncope. NEUROLOGIC: History of cerebral palsy, mental retardation and seizures. There is no history of TIA or CVA. No recent seizures. PSYCHIATRIC: The patient has history of severe anxiety and panic attacks. GASTROINTESTINAL: No history of GI bleed. The rest of the review of systems is not obtainable. Of note, today the patient is asleep and her heart rate has come down to 30 beats per minute, which is sinus rhythm. PHYSICAL EXAMINATION: GENERAL: Patient is asleep at present. VITAL SIGNS: She is afebrile today. Temperature 98.2 degrees Fahrenheit. Pulse 34 beats/min, blood pressure 97/43 earlier this morning and respirations 16 per minute. O2 saturation 100% on room air. HEENT: Head is atraumatic, normocephalic. The patient appears to be mentally retarded. NECK: Supple. There is no JVD. Carotids are equal. There is no bruit. LUNGS: Show harsh breath sounds without any rhonchi, rales, or wheezing. HEART: S1 and S2 are heard. There is no S3 gallop. There is no S4 gallop. There is a systolic murmur in the left sternal border and apex. There is no rub. ABDOMEN: Soft, nontender. There is no hepatosplenomegaly. Bowel sounds are well heard. EXTREMITIES: Femorals are diminished. Leg pulses are diminished. There is no pedal edema. There is no DVT or cellulitis. The patient has some contractions of the lower extremities. PSYCHIATRIC: At present, the patient is sleepy and not tested. DIAGNOSTIC TEST RESULTS: The patient's chest x-ray is negative. EKG shows sinus tachycardia, incomplete right bundle branch block pattern. The patient's chest CT done on September 22 shows right middle lobe pneumonia. The patient's labs showed white count of 9300, hemoglobin 11.2, hematocrit 33.5 and platelet count 123,000. Earlier on day of admission on September 22, the patient's white count was 19,600, hemoglobin 13.2, hematocrit 40.1 and platelet count 142,000. The patient's sodium 134.8, potassium 4.1, chloride 104, CO2 22, BUN 10, creatinine 0.52, GFR greater than 60, glucose 77, calcium 7.9. The rest of the labs noted. IMPRESSION: 1. TACHYCARDIA. This is due to the patient's fever, pneumonia and cough, and also due to anxiety and panic attacks. This is a physiological response and would treat the cause. 2. RIGHT MIDDLE LOBE PNEUMONIA. Continue antibiotics. 3. HISTORY OF CEREBRAL PALSY. 4. MENTAL RETARDATION. 5. SYSTOLIC MURMUR. 6. HISTORY OF SEIZURES. 7. HISTORY OF GASTROESOPHAGEAL REFLUX DISEASE. RECOMMENDATIONS: At present no cardiac intervention needed. Note, attempts to get an echo were unsuccessful since the patient would not cooperate. TIME SPENT: Thirty minutes spent on this patient with more than 50% of the time spent on direct patient care and also discussion with patient's sister. This is a low complexity medical decision making case since the sinus tachycardia cause is very straightforward and apparent. We will sign off the case, no further cardiac workup is needed. Thanking you. DICTATING PHYSICIAN: ARMANI IBRAHIM M.D. [id number] PHY#: [id number] ID: [id number] JOB#: [id number] ACCT: [id number] cc:ARMANI IBRAHIM M.D. >
== END 2016-09-24 15:46 | disposition home health service (06) | DRG 195 ==
LOC: ER 12:04 → EH 16:11 → UNDOADMIN 16:40 → 4S 19:03
PROVIDERS: ADMIT Family Medicine; ATTEND Family Medicine
PROC: 3E0F73Z Introduction of Anti-inflammatory into Respiratory Tract, Via Natural or Artificial Opening (ICD-10-PCS; principal; 2016-09-23)
DX: J18.9 Pneumonia, unspecified organism (principal); G80.9 Cerebral palsy, unspecified; F79 Unspecified intellectual disabilities; K21.9 Gastro-esophageal reflux disease without esophagitis; G40.909 Epilepsy, unspecified, not intractable, without status epilepticus; F41.9 Anxiety disorder, unspecified; R00.0 Tachycardia, unspecified; R01.1 Cardiac murmur, unspecified; Z79.899 Other long term (current) drug therapy; Z88.8 Allergy status to other drugs, medicaments and biological substances
CPT/HCPCS: 36415; 71010; 71020; 71250; 80048; 80053; 83605; 85025; 87040; 93005; 93010; 94640; 99285; J0456; J0692; J1630; J1650; J2060; J3490; J7030; J7620

== ENCOUNTER → 2016-09-30 | Outpatient (CLI) | payer MEDICARE, OTHER, MEDICAID ==
--- NOTE | 2016-09-30 11:44 | RADIOLOGY REPORT (SQ) ---
EXAM DESCRIPTION: CHEST SINGLE VIEW COMPLETED DATE/TIME: 09/30/2016 11:22 am REASON FOR STUDY: PNEUMONIA, UNSPECIFIED ORGANISM COMPARISON: CT chest 09/22/2016 Chest films 09/22/2016, 09/24/2016 EXAM PARAMETERS: NUMBER OF VIEWS: One view. TECHNIQUE: Single frontal radiographic view of the chest acquired. RADIATION DOSE: NA LIMITATIONS: None. FINDINGS: LUNGS AND PLEURA: No opacities, masses or pneumothorax. No pleural effusion. MEDIASTINUM AND HILAR STRUCTURES: No masses. Contour normal. HEART AND VASCULAR STRUCTURES: Heart normal in size. Normal vasculature. BONES: No acute findings. HARDWARE: None in the chest. OTHER: No other significant finding. IMPRESSION: NO ACUTE RADIOGRAPHIC FINDING IN THE CHEST. TECHNICAL DOCUMENTATION: JOB ID: [id number]
== END ==
LOC: OD 11:03
PROVIDERS: ATTEND Family Medicine
DX: J18.9 Pneumonia, unspecified organism (principal)
CPT/HCPCS: 71010

== ENCOUNTER 2016-11-25 13:27 | Inpatient (IN) | payer MEDICARE, OTHER, MEDICAID ==
--- NOTE | 2016-11-25 13:42 | ER Document Report ---
ED Medical Screen (RME) - General Chief Complaint: Respiratory Distress Stated Complaint: COUGH Time Seen by Provider: 11/25/16 13:37 Notes: Patient started with a vigorous cough yesterday. Today, she is running a fever of 101.6 and her oxygen levels are between 60 and 70% saturation. She has a history of pneumonia a couple of months ago with similar symptoms and signs at that time. Patient lives in a facility for special needs patients. She has a history of CP. It is not cooperative for evaluation or care. TRAVEL OUTSIDE OF THE [place] IN LAST 30 DAYS: No - Related Data Allergies/Adverse Reactions: Benzodiazepines Allergy (Verified 09/22/16 16:59) chloral hydrate [Chloral Hydrate] Allergy (Verified 09/22/16 16:59) topiramate [From Topamax] Allergy (Verified 09/22/16 16:59) Past Medical History - Social History Chew tobacco use (# tins/day): No Frequency of alcohol use: None Drug Abuse: None Family history: Reviewed & Not Pertinent - Past Medical History Cardiac Medical History: Reports: Hx Heart Attack Pulmonary Medical History: Reports: Hx Pneumonia Neurological Medical History: Reports: Hx Seizures Renal/ Medical History: Denies: Hx Peritoneal Dialysis GI Medical History: Reports: Hx Gastroesophageal Reflux Disease - Immunizations Hx Diphtheria, Pertussis, Tetanus Vaccination: Yes Physical Exam - Vital signs Vitals: Pulse Resp Pulse Ox 121 H 32 H 86 L 11/25/16 13:28 11/25/16 13:28 11/25/16 13:28 Course - Vital Signs Vital signs: Temp Pulse Resp BP Pulse Ox 101 H 24 H 86 L 11/25/16 13:30 11/25/16 13:30 11/25/16 13:30
--- NOTE | 2016-11-25 14:13 | ER Document Report ---
ED Respiratory Problem - General Chief Complaint: Respiratory Distress Stated Complaint: COUGH Time Seen by Provider: 11/25/16 13:37 Notes: The patient is a 31-year-old female, past medical history cerebral palsy, frequent pneumonias, presents from Dr. Higgins's office after her oxygen was noticed to be 50-60% on room air. She also is having a productive cough and is tachypneic. Her temperature was 101.6 at her primary care's office. Patient is unable to provide any history. Her home MYSQL DATABASE ADMINISTRATOR said that patient is acting at baseline. TRAVEL OUTSIDE OF THE [place] IN LAST 30 DAYS: No - Related Data Allergies/Adverse Reactions: Benzodiazepines Allergy (Verified 09/22/16 16:59) chloral hydrate [Chloral Hydrate] Allergy (Verified 09/22/16 16:59) topiramate [From Topamax] Allergy (Verified 09/22/16 16:59) Past Medical History - General Information source: Emergency Med Personnel, Office Cannot obtain history due to: Mentally challenged - Social History Smoking Status: Never Smoker Chew tobacco use (# tins/day): No Frequency of alcohol use: None Drug Abuse: None Family History: Reviewed & Not Pertinent - Past Medical History Cardiac Medical History: Reports: Hx Heart Attack Pulmonary Medical History: Reports: Hx Pneumonia Neurological Medical History: Reports: Hx Seizures Renal/ Medical History: Denies: Hx Peritoneal Dialysis GI Medical History: Reports: Hx Gastroesophageal Reflux Disease - Immunizations Hx Diphtheria, Pertussis, Tetanus Vaccination: Yes Review of Systems - Review of Systems -: Yes ROS unobtainable due to patient's medical condition Constitutional: Fever Respiratory: Cough, Short of breath Physical Exam - Vital signs Vitals: Pulse Resp Pulse Ox 121 H 32 H 86 L 11/25/16 13:28 11/25/16 13:28 11/25/16 13:28 - Notes Notes: PHYSICAL EXAMINATION: GENERAL: Well-appearing, well-nourished and in no acute distress. Mildly agitated. HEAD: Atraumatic, normocephalic. EYES: Pupils equal round and reactive to light, extraocular movements intact, sclera anicteric, conjunctiva are normal. ENT: nares patent, oropharynx clear without exudates. Moist mucous membranes. NECK: Normal range of motion, supple without lymphadenopathy LUNGS: Tachypnea. Coarse breath sounds and crackles in RLL. HEART: Tachycardia. Regular rhythm. ABDOMEN: Soft, nontender, normoactive bowel sounds. No guarding, no rebound. No masses appreciated. EXTREMITIES: Normal range of motion, no pitting or edema. No cyanosis. NEUROLOGICAL: Cranial nerves grossly intact. Moving all 4 extremities. SKIN: Warm, Dry, normal turgor, no rashes or lesions noted. Course - Re-evaluation Re-evalutation: Patient clinically has evidence of right lower lobe pneumonia with crackles, tachypnea, hypoxia, cough and fevers. Her oxygenation improved with 4 L nasal cannula patient does not appear to be in any respiratory distress. CAP Abx started and patient will require admission for further evaluation and treatment. 11/25/16 16:[address] Higgins and will admit patient to [facility] as Inpatient. - Vital Signs Vital signs: Temp Pulse Resp BP Pulse Ox 101 H 34 H 131/73 H 100 11/25/16 13:30 11/25/16 16:01 11/25/16 15:23 11/25/16 16:01 - Laboratory Result Diagrams: 11/25/16 15:00 11/25/16 15:00 Laboratory results interpreted by me: 11/25/16 11/25/16 11/25/16 15:00 15:00 15:00 WBC 14.4 H Plt Count 145 L Seg Neutrophils % 82.9 H Lymphocytes % 7.1 L Absolute Neutrophils 11.9 H VBG pH VBG pCO2 Sodium 132.5 L Creatinine 0.51 L Alkaline Phosphatase 37 L NT-Pro-B Natriuret Pep 320 H Albumin 3.2 L 11/25/16 15:00 WBC Plt Count Seg Neutrophils % Lymphocytes % Absolute Neutrophils VBG pH 7.48 H VBG pCO2 34.1 L Sodium Creatinine Alkaline Phosphatase NT-Pro-B Natriuret Pep Albumin - Diagnostic Test Radiology reviewed: Image reviewed, Reports reviewed Radiology results interpreted by me: CXR: NAD - EKG Interpretation by Me EKG shows normal: Sinus rhythm, [place], Intervals, QRS Complexes, ST-T Waves Rate: Tachycardia When compared to previous EKG there are: No significant change Discharge - Discharge Clinical Impression: Hypoxia Pneumonia Qualifiers: Pneumonia type: due to unspecified organism Laterality: right Lung location: lower lobe of lung Qualified Code(s): J18.1 - Lobar pneumonia, unspecified organism Sepsis Qualifiers: Sepsis type: sepsis due to unspecified organism Qualified Code(s): A41.9 - Sepsis, unspecified organism Condition: Stable Disposition: ADMITTED INPATIENT Admitting Provider: Daniel Unit Admitted: Telemetry Referrals: PAUL HIGGINS MD [Primary Care Provider] - Follow up as needed
[2016-11-25] MEDS ORDERED: ACETAMINOPHEN SUSP 160 MG/5 ML ORAL SYRING PO ONE (14:31)
[2016-11-25] MEDS ORDERED: MIDAZOLAM HCL INJ 5 MG/1 ML VIAL NASL ONE ×2 (14:34→14:56)
[2016-11-25] MEDS ORDERED: MIDAZOLAM 2 MG/2 ML INJ ONE (14:35)
[2016-11-25] MEDS ORDERED: AZITHROMYCIN INJ 500 MG VIAL IV ONE (14:46)
[2016-11-25] MEDS ORDERED: CEFTRIAXONE 1 GM/D5W RTU 1 GM/50 ML RTUPB IV ONE (14:46)
[2016-11-25] MEDS: NORMAL SALINE 1000 ML 1,000 ML IV PRN ×2 (14:52→15:04)
[2016-11-25 15:16] LABS: ABSOLUTE MONOCYTES (AUTO) 1.4 10^3/uL (0.1-1.4); ABSOLUTE NEUT (AUTO) 11.9 10^3/uL (1.7-8.2); BASOPHILS % (AUTO) 0.2 % (0-2); EOSINOPHILS % (AUTO) 0.1 % (0-6); HEMATOCRIT 37.7 % (36.0-47.0); HEMOGLOBIN 12.9 g/dL (12.0-15.5); LYMPHOCYTES % (AUTO) 7.1 % (13-45); MEAN CORPUSCULAR HEMOGLOBIN 32.9 pg (27.0-33.4); MEAN CORPUSCULAR HGB CONC 34.3 g/dL (32.0-36.0); MEAN CORPUSCULAR VOLUME 96 fl (80-97); MONOCYTES % (AUTO) 9.7 % (3-13); RED BLOOD COUNT 3.93 10^6/uL (3.72-5.28); RED CELL DISTRIBUTION WIDTH 13.2 % (11.5-14.0); SEGMENTED NEUTROPHILS % (AUTO) 82.9 % (42-78); WHITE BLOOD COUNT 14.4 10^3/uL (4.0-10.5)
[2016-11-25 15:22] LABS: VENOUS BLOOD BASE EXCESS 1.6 mmol/L; VENOUS BLOOD HCO3 24.7 mmol/L (20-32); VENOUS BLOOD PCO2 34.1 mmHg (35-63); VENOUS BLOOD PH 7.48 (7.30-7.42)
[2016-11-25 15:32] LABS: ALANINE AMINOTRANSFERASE 17 U/L (9-52); ALBUMIN 3.2 g/dL (3.5-5.0); ALKALINE PHOSPHATASE 37 U/L (38-126); ANION GAP 8 (5-19); ASPARTATE AMINO TRANSFERASE 20 U/L (14-36); BILIRUBIN,DIRECT 0.4 mg/dL (0.0-0.4); BILIRUBIN,TOTAL 0.7 mg/dL (0.2-1.3); BLOOD UREA NITROGEN 16 mg/dL (7-20); CALCIUM 8.7 mg/dL (8.4-10.2); CARBON DIOXIDE 25 mmol/L (22-30); CHLORIDE 100 mmol/L (98-107); CREATINE KINASE 40 U/L (30-135); CREATININE RESULT 0.51 mg/dL (0.52-1.25); GLUCOSE 82 mg/dL (75-110); POTASSIUM 4.4 mmol/L (3.6-5.0); SODIUM 132.5 mmol/L (137-145); TOTAL PROTEIN 6.4 g/dL (6.3-8.2)
[2016-11-25 15:45] LABS: TROPONIN I < 0.012 ng/mL
[2016-11-25] MEDS ORDERED: ACETAMINOPHEN 325 MG TABLET PO PRN (16:52)
[2016-11-25] MEDS ORDERED: NORMAL SALINE 1000 ML 1,000 ML IV PRN (16:52)
--- NOTE | 2016-11-25 17:08 | PDOC H&P ---
History of Present Illness Admission Date/PCP: PAUL HIGGINS MD Patient complains of: fever/hypoxia History of Present Illness: DILLON YAP is a 31 year old female This is a 31-year-old female currently a resident of the [facility] with a history of the cerebral palsy mental retardation's with the history of the recurrent pneumonia recently admitting in the hospital in 2 months back came to the my officeWith the complaint of fever 101 and the patient 's oxygen level was a 70-80% and patient was put on oxygen and patient was transferred to the emergency departmentIn the emergency department workup with the elevated white count and possible pneumonia and admitting the hospital for further evaluation and treatment Was doing okayPatient's according to the caregiver since yesterday he could be a possible small aspirations but patient does not have any PEG tubeAnd no seizures activity Past Medical History Pulmonary Medical History: Reports: Pneumonia Neurological Medical History: Reports: Seizures GI Medical History: Reports: Gastroesophageal Reflux Disease Psychiatric Medical History: Reports: Other Social History Smoking Status: Never Smoker Frequency of Alcohol Use: None Hx Recreational Drug Use: No Drugs: None Hx Prescription Drug Abuse: No Family History Family History: Reviewed & Not Pertinent Parental Family History Reviewed: Yes Children Family History Reviewed: Yes Sibling(s) Family History Reviewed.: Yes Medication/Allergy Home Medications: Cholecalciferol (Vitamin D3) [Vitamin D3 1000 Unit Tablet] 1,000 unit PO DAILY 09/22/16 Divalproex Sodium [Depakote ER 250 mg Tablet] 750 mg PO QHS 09/22/16 Divalproex Sodium [Depakote ER 500 mg Tab.sr] 500 mg PO DAILY 09/22/16 Fluticasone Propionate [Flonase Nasal [place] 50 Mcg/[place] 16 gm] 1 spray NAREB Q12HP PRN 09/22/16 Fluvoxamine Maleate 50 mg PO QHS 09/22/16 Levonorgestrel-Ethin Estradiol [Introvale 0.15-0.03 mg Tablet] 1 each PO DAILY 09/22/16 Polyethylene Glycol 3350 [Miralax Powder 17 gm/Packet] 1 packet PO Q48H PRN Prostat Sf Liquids 30 ml PO DAILY 09/22/16 Quetiapine Fumarate [Seroquel 100 mg Tablet] 150 mg PO QHS 09/22/16 Quetiapine Fumarate [Seroquel] 50 mg PO DAILY@1400 09/22/16 Sennosides [Senokot] 17.2 mg PO DAILY 09/22/16 Valacyclovir HCl [Valtrex] 2,000 mg PO Q12HP PRN 09/22/16 Azithromycin [Zithromax 250 mg Tablet] 250 mg PO DAILY #3 tablet 09/24/16 Guaifenesin [Mucinex Sr 600 mg Tablet.sa] 600 mg PO Q12 #0 tablet.sa 09/24/16 Sulfamethoxazole/Trimethoprim [Septra-Ds 800-160 mg Tablet] 1 tab PO BID #14 tablet 09/24/16 Allergies/Adverse Reactions: Benzodiazepines Allergy (Verified 09/22/16 16:59) chloral hydrate [Chloral Hydrate] Allergy (Verified 09/22/16 16:59) topiramate [From Topamax] Allergy (Verified 09/22/16 16:59) Review of Systems ROS unobtainable: Due to mental status All systems: reviewed and no additional remarkable complaints except as stated Physical Exam Vital Signs: Temp Pulse Resp BP Pulse Ox 99.3 F 101 H 22 H 115/96 H 100 11/25/16 16:59 11/25/16 13:30 11/25/16 16:40 11/25/16 16:40 11/25/16 16:40 Intake & Output 11/24/16 11/25/16 11/26/16 06:59 06:59 06:59 Weight 53.07 kg General appearance: PRESENT: mild distress Eye exam: PRESENT: PERRLA Neck exam: ABSENT: carotid bruit, full ROM, JVD, lymphadenopathy, meningismus, tenderness, thyromegaly, tracheal deviation, tracheostomy, other Respiratory exam: PRESENT: decreased breath sounds, rhonchi, tachypnea Cardiovascular exam: PRESENT: +S1, +S2, tachycardia GI/Abdominal exam: PRESENT: normal bowel sounds, soft. ABSENT: tenderness Extremities exam: ABSENT: pedal edema Musculoskeletal exam: PRESENT: ambulatory Neurological exam: PRESENT: alert, awake Psychiatric exam: PRESENT: agitated, anxious Skin exam: PRESENT: dry Results Laboratory Results: 11/25/16 15:00 11/25/16 15:00 11/25/16 11/25/16 11/25/16 15:00 15:00 15:00 WBC 14.4 H RBC 3.93 Hgb 12.9 Hct 37.7 MCV 96 MCH 32.9 MCHC 34.3 RDW 13.2 Plt Count 145 L Seg Neutrophils % 82.9 H Lymphocytes % 7.1 L Monocytes % 9.7 Eosinophils % 0.1 Basophils % 0.2 Absolute Neutrophils 11.9 H Absolute Lymphocytes 1.0 Absolute Monocytes 1.4 Absolute Eosinophils 0.0 Absolute Basophils 0.0 VBG pH VBG pCO2 VBG HCO3 VBG Base Excess Sodium 132.5 L Potassium 4.4 Chloride 100 Carbon Dioxide 25 Anion Gap 8 BUN 16 Creatinine 0.51 L Est GFR ( Amer) > 60 Est GFR (Non-Af Amer) > 60 Glucose 82 Lactic Acid Calcium 8.7 Total Bilirubin 0.7 AST 20 ALT 17 Alkaline Phosphatase 37 L Total Protein 6.4 Albumin 3.2 L Serum HCG, Qual NEGATIVE 11/25/16 11/25/16 15:00 15:00 WBC RBC Hgb Hct MCV MCH MCHC RDW Plt Count Seg Neutrophils % Lymphocytes % Monocytes % Eosinophils % Basophils % Absolute Neutrophils Absolute Lymphocytes Absolute Monocytes Absolute Eosinophils Absolute Basophils VBG pH 7.48 H VBG pCO2 34.1 L VBG HCO3 24.7 VBG Base Excess 1.6 Sodium Potassium Chloride Carbon Dioxide Anion Gap BUN Creatinine Est GFR ( Amer) Est GFR (Non-Af Amer) Glucose Lactic Acid 2.0 Calcium Total Bilirubin AST ALT Alkaline Phosphatase Total Protein Albumin Serum HCG, Qual 11/25/16 11/25/16 15:00 15:00 Creatine Kinase 40 Troponin I < 0.012 NT-Pro-B Natriuret Pep 320 H Assessment & Plan - Diagnosis (1) Hypoxia Is this a current diagnosis for this admission?: Yes Plan: Most likely due to underlying pneumonia will continues to follow her oxygen at the CT of the chest and we consult the pulmonary for further evaluations (2) Pneumonia Qualifiers: Pneumonia type: due to unspecified organism Laterality: right Lung location: lower lobe of lung Qualified Code(s): J18.1 - Lobar pneumonia, unspecified organism Is this a current diagnosis for this admission?: Yes Plan: Start the patient on IV cefepime and Zithromax and also cover with the Flagyl (3) Fever Qualifiers: Fever type: unspecified Qualified Code(s): R50.9 - Fever, unspecified Is this a current diagnosis for this admission?: Yes Plan: Will get the blood culture and sputum culture urine culture start the patient on IV antibiotic (4) Mental retardation Is this a current diagnosis for this admission?: Yes (5) Seizures Is this a current diagnosis for this admission?: Yes Plan: Continues to current medications - Time Time Spent: 30 to 50 Minutes Medications reviewed and adjusted accordingly: Yes Anticipated discharge: Other Within: Other - Inpatient Certification Medical Necessity: Need For IV Fluids, Need for IV Antibiotics 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
[2016-11-25] MEDS ORDERED: ENOXAPARIN SODIUM INJ 40 MG/0.4 ML DISP.SYRIN SUBCUT ONE (18:00)
--- NOTE | 2016-11-25 20:25 | EKG REPORT ---
SEVERITY:- BORDERLINE ECG - SINUS TACHYCARDIA NONSPECIFIC ST-T CHANGES- INFERIOR LEADS : Confirmed by: Keaton Florence MD 25-Nov-2016 20:24:11
[2016-11-25] MEDS: LEVALBUTEROL HCL NEB 1.25 MG/3 ML AMPUL NEB SCH (20:40)
[2016-11-25] MEDS: BUDESONIDE NEB 0.5 MG/2 ML AMPUL NEB SCH (20:41)
[2016-11-25] MEDS ORDERED: VALACYCLOVIR HCL 2000 MG PO PRN (20:56)
[2016-11-25] MEDS ORDERED: FLUTICASONE NASAL SPRAY 50 MCG/SPRY 120 SPRAY/16 GM NASL PRN (20:56)
[2016-11-25] MEDS ORDERED: VALACYCLOVIR HCL 500 MG TABLET PO PRN (21:02)
[2016-11-25 21:06] LABS: ARTERIAL BLOOD BASE EXCESS 0.8 mmol/L
[2016-11-25] MEDS ORDERED: FLUVOXAMINE MALEATE 50 MG PO SCH (22:00)
[2016-11-25] MEDS ORDERED: LEVONORGESTREL ETHIN ESTRADIOL PO SCH (22:00)
[2016-11-25] MEDS ORDERED: CEFEPIME 1 GM/D5W RTU 1 GM/50 ML RTUPB IV SCH (22:00)
[2016-11-25] MEDS: DIVALPROEX SODIUM 250 MG TAB.SR.24H PO SCH (22:02)
[2016-11-25] MEDS: QUETIAPINE FUMARATE 100 MG TABLET PO SCH (22:02)
[2016-11-25] MEDS: POLYETHYLENE GLYCOL 3350 POWDER 17 GM/1 PACKET PO SCH (22:03)
[2016-11-25] MEDS: GUAIFENESIN 600 MG TABLET.SA PO SCH (22:03)
[2016-11-25] MEDS: CEFEPIME HCL 1 GM in DEXTROSE 5%-WATER 50 ML IV SCH (22:03)
[2016-11-25] MEDS: DIVALPROEX SODIUM 500 MG TAB.SR.24H PO SCH (22:03)
[2016-11-26] MEDS: LEVALBUTEROL HCL NEB 1.25 MG/3 ML AMPUL NEB SCH ×4 (02:26→20:25)
[2016-11-26 04:55] LABS: MEAN CORPUSCULAR VOLUME 97 fl (80-97)
[2016-11-26 05:02] LABS: ABSOLUTE LYMPHOCYTES (AUTO) 2.7 10^3/uL (0.5-4.7); ABSOLUTE MONOCYTES (AUTO) 1.1 10^3/uL (0.1-1.4); ABSOLUTE NEUT (AUTO) 5.3 10^3/uL (1.7-8.2); BASOPHILS % (AUTO) 0.5 % (0-2); EOSINOPHILS % (AUTO) 0.5 % (0-6); HEMATOCRIT 30.6 % (36.0-47.0); HGB HCT DIFFERENCE 1.2; LYMPHOCYTES % (AUTO) 29.8 % (13-45); MEAN CORPUSCULAR HEMOGLOBIN 33.4 pg (27.0-33.4); MEAN CORPUSCULAR HGB CONC 34.6 g/dL (32.0-36.0); MONOCYTES % (AUTO) 11.7 % (3-13); RED BLOOD COUNT 3.16 10^6/uL (3.72-5.28); RED CELL DISTRIBUTION WIDTH 13.4 % (11.5-14.0); SEGMENTED NEUTROPHILS % (AUTO) 57.5 % (42-78); WHITE BLOOD COUNT 9.2 10^3/uL (4.0-10.5)
[2016-11-26 05:03] LABS: HEMOGLOBIN 10.6 g/dL (12.0-15.5)
[2016-11-26 05:16] LABS: ALANINE AMINOTRANSFERASE 15 U/L (9-52); ALBUMIN 2.3 g/dL (3.5-5.0); ALKALINE PHOSPHATASE 31 U/L (38-126); ANION GAP 5 (5-19); ASPARTATE AMINO TRANSFERASE 22 U/L (14-36); BILIRUBIN,DIRECT 0.3 mg/dL (0.0-0.4); BILIRUBIN,TOTAL 0.5 mg/dL (0.2-1.3); BLOOD UREA NITROGEN 13 mg/dL (7-20); CALCIUM 7.7 mg/dL (8.4-10.2); CARBON DIOXIDE 24 mmol/L (22-30); CHLORIDE 107 mmol/L (98-107); CREATININE RESULT 0.45 mg/dL (0.52-1.25); GLUCOSE 83 mg/dL (75-110); POTASSIUM 4.1 mmol/L (3.6-5.0); SODIUM 135.9 mmol/L (137-145); TOTAL PROTEIN 5.2 g/dL (6.3-8.2)
[2016-11-26] MEDS: BUDESONIDE NEB 0.5 MG/2 ML AMPUL NEB SCH ×2 (09:05→20:25)
[2016-11-26] MEDS: ENOXAPARIN SODIUM INJ 40 MG/0.4 ML DISP.SYRIN SUBCUT SCH (09:51)
[2016-11-26] MEDS: DIVALPROEX SODIUM 500 MG TAB.SR.24H PO SCH ×2 (09:52→21:45)
[2016-11-26] MEDS: GUAIFENESIN 600 MG TABLET.SA PO SCH ×2 (09:53→21:45)
[2016-11-26] MEDS: CEFEPIME HCL 1 GM in DEXTROSE 5%-WATER 50 ML IV SCH ×2 (09:53→21:45)
[2016-11-26] MEDS: CHOLECALCIFEROL (D3) 1,000 UNIT TABLET PO SCH (09:53)
[2016-11-26] MEDS ORDERED: (PENDING PHARMACY ID) (Sennosides [Senna] 2 TAB) PO SCH (10:00)
[2016-11-26] MEDS ORDERED: PROTEIN SUPPLEMENT PO SCH (10:00)
[2016-11-26] MEDS ORDERED: LORAZEPAM 0.5 MG TABLET PO PRN (11:55)
[2016-11-26] MEDS: AZITHROMYCIN 500 MG in DEXTROSE 5%-WATER 250 ML IV SCH (12:13)
[2016-11-26] MEDS ORDERED: NORMAL SALINE 1000 ML 1,000 ML IV PRN (14:26)
--- NOTE | 2016-11-26 14:29 | PDOC PROGRESS REPORT ---
Subjective Progress Note for:: 11/26/16 Subjective:: Patient is feeling much better this morning no fever Cough is also improving Sister is on bedside Physical Exam Vital Signs: Temp Pulse Resp BP Pulse Ox 100.8 F H 112 H 18 100/60 100 11/26/16 12:00 11/26/16 14:03 11/26/16 14:03 11/26/16 12:00 11/26/16 12:00 Pulse Oximeter Continuous Start: 11/25/16 16: 59 Freq: RTQ4 Status: Active Document 11/26/16 12:00 [facility] (Rec: 11/26/16 14:09 [facility] [email or web address]) Pulse Oximetry Assessment Equipment Usage Equipment Standby Continuous SpO2 Machine # 2 Intake & Output 11/25/16 11/26/16 11/27/16 06:59 06:59 06:59 Intake Total 1240 Balance 1240 Weight 53.07 kg General appearance: PRESENT: no acute distress Eye exam: PRESENT: PERRLA Respiratory exam: PRESENT: clear to auscultation merari Cardiovascular exam: PRESENT: +S1, +S2 GI/Abdominal exam: PRESENT: normal bowel sounds, soft Extremities exam: ABSENT: pedal edema Neurological exam: PRESENT: alert, awake Psychiatric exam: PRESENT: anxious Results Laboratory Results: 11/26/16 04:04 11/26/16 04:04 11/25/16 11/26/16 11/26/16 20:45 04:04 04:04 WBC 9.2 RBC 3.16 L Hgb 10.6 L D Hct 30.6 L MCV 97 MCH 33.4 MCHC 34.6 RDW 13.4 Plt Count 102 L Seg Neutrophils % 57.5 Lymphocytes % 29.8 Monocytes % 11.7 Eosinophils % 0.5 Basophils % 0.5 Absolute Neutrophils 5.3 Absolute Lymphocytes 2.7 Absolute Monocytes 1.1 Absolute Eosinophils 0.0 Absolute Basophils 0.0 Carbonic Acid 0.90 L HCO3/H2CO3 Ratio 25:1 ABG pH 7.51 H ABG pCO2 30.0 L ABG pO2 81.3 ABG HCO3 23.2 ABG O2 Saturation 97.0 ABG Base Excess 0.8 FiO2 2L Sodium 135.9 L Potassium 4.1 Chloride 107 Carbon Dioxide 24 Anion Gap 5 BUN 13 Creatinine 0.45 L Est GFR ( Amer) > 60 Est GFR (Non-Af Amer) > 60 Glucose 83 Calcium 7.7 L Total Bilirubin 0.5 AST 22 ALT 15 Alkaline Phosphatase 31 L Total Protein 5.2 L Albumin 2.3 L Assessment & Plan - Diagnosis (1) Hypoxia Is this a current diagnosis for this admission?: Yes Plan: Patient CTA is all negative thing is most likely underlying pneumonia (2) Pneumonia Qualifiers: Pneumonia type: due to unspecified organism Laterality: right Lung location: lower lobe of lung Qualified Code(s): J18.1 - Lobar pneumonia, unspecified organism Is this a current diagnosis for this admission?: Yes Plan: Start the patient on IV cefepime and Zithromax and also cover with the Flagyl (3) Fever Qualifiers: Fever type: unspecified Qualified Code(s): R50.9 - Fever, unspecified Is this a current diagnosis for this admission?: Yes Plan: Will get the blood culture and sputum culture urine culture start the patient on IV antibiotic (4) Mental retardation Is this a current diagnosis for this admission?: Yes (5) Seizures Is this a current diagnosis for this admission?: Yes Plan: Continues to current medications - Time Time Spent with patient: 15-24 minutes Medications reviewed and adjusted accordingly: Yes Anticipated discharge: Home Within: Other - Inpatient Certification Medical Necessity: Need For IV Fluids, Need for IV Antibiotics 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
--- NOTE | 2016-11-26 14:58 | RADIOLOGY REPORT (SQ) ---
EXAM DESCRIPTION: Two-view chest COMPLETED DATE/TIME: 11/25/2013, 1411 hours caps REASON FOR STUDY: Congestion, cough, low oxygen saturation, history of pneumonia COMPARISON: Chest films 09/22/2016, , 09/30/2016 CT chest 09/22/2016 TECHNIQUE: PA and lateral chest, 11/25/2016, 1411 hours LIMITATIONS: None FINDINGS: Lungs are well inflated and clear. No pleural effusion. No pneumothorax. No pulmonary nodules. Cardiac silhouette size, juan j unremarkable. Mild convex rightward thoracic curvature. IMPRESSION: No acute changes
[2016-11-26] MEDS: QUETIAPINE FUMARATE 100 MG TABLET PO SCH ×2 (15:48→21:45)
[2016-11-26] MEDS: DIVALPROEX SODIUM 250 MG TAB.SR.24H PO SCH (21:45)
[2016-11-27] MEDS: LEVALBUTEROL HCL NEB 1.25 MG/3 ML AMPUL NEB SCH ×4 (04:06→21:03)
[2016-11-27 06:53] LABS: ABSOLUTE BASOPHILS # (AUTO) 0.1 10^3/uL (0.0-0.2); ABSOLUTE EOSINOPHILS # (AUTO) 0.1 10^3/uL (0.0-0.6); ABSOLUTE LYMPHOCYTES (AUTO) 2.6 10^3/uL (0.5-4.7); ABSOLUTE MONOCYTES (AUTO) 0.8 10^3/uL (0.1-1.4); ABSOLUTE NEUT (AUTO) 4.3 10^3/uL (1.7-8.2); BASOPHILS % (AUTO) 0.9 % (0-2); EOSINOPHILS % (AUTO) 0.9 % (0-6); HEMATOCRIT 31.2 % (36.0-47.0); HEMOGLOBIN 10.8 g/dL (12.0-15.5); HGB HCT DIFFERENCE 1.2; LYMPHOCYTES % (AUTO) 32.6 % (13-45); MEAN CORPUSCULAR HGB CONC 34.6 g/dL (32.0-36.0); MEAN CORPUSCULAR VOLUME 95 fl (80-97); MONOCYTES % (AUTO) 10.8 % (3-13); RED BLOOD COUNT 3.28 10^6/uL (3.72-5.28); SEGMENTED NEUTROPHILS % (AUTO) 54.8 % (42-78); WHITE BLOOD COUNT 7.9 10^3/uL (4.0-10.5)
[2016-11-27 06:56] LABS: ALANINE AMINOTRANSFERASE 17 U/L (9-52); ALBUMIN 2.4 g/dL (3.5-5.0); ALKALINE PHOSPHATASE 25 U/L (38-126); ASPARTATE AMINO TRANSFERASE 14 U/L (14-36); BILIRUBIN,DIRECT 0.3 mg/dL (0.0-0.4); BILIRUBIN,TOTAL 0.5 mg/dL (0.2-1.3); BLOOD UREA NITROGEN 9 mg/dL (7-20); CALCIUM 7.9 mg/dL (8.4-10.2); CREATININE RESULT 0.42 mg/dL (0.52-1.25); GLUCOSE 83 mg/dL (75-110); POTASSIUM 4.4 mmol/L (3.6-5.0); TOTAL PROTEIN 5.4 g/dL (6.3-8.2)
[2016-11-27 07:07] LABS: CARBON DIOXIDE 27 mmol/L (22-30); CHLORIDE 101 mmol/L (98-107); SODIUM 130.5 mmol/L (137-145)
[2016-11-27 07:08] LABS: ANION GAP 3 (5-19)
[2016-11-27] MEDS: DIVALPROEX SODIUM 500 MG TAB.SR.24H PO SCH ×2 (07:46→21:08)
--- NOTE | 2016-11-27 08:10 | RADIOLOGY REPORT (SQ) ---
EXAM DESCRIPTION: CTA CHEST COMPLETED DATE/TIME: 11/25/2016 5:23 pm REASON FOR STUDY: hypoxia, tachycardia, tachypnea COMPARISON: 09/22/2016 EXAM PARAMETERS: TECHNIQUE: CT scan of the chest performed using helical scanning technique with dyn amic intravenous contrast injection. Images reviewed with lung, soft tissue and bone windows. Recon structed coronal and sagittal MPR images reviewed. Additional 3 dimensional post-processing performed to develop Maximal Intensity Projection images (DC P). All images stored on PACS. All CT scanners at this facility use dose modulation, iterative reconstruction, and/or weight based d osing when appropriate to reduce radiation dose to as low as reasonably achievable (ALARA). [facility]: Dose Right [facility]: [employer]Care [facility]: Dose Right [facility]: Teradose 4D [facility]: [employer] CONTRAST TYPE AND DOSE: RENAL FUNCTION: None required. The patient is less than 50 years old. RADIATION DOSE: mGy. LIMITATIONS: Timing of contrast bolus. FINDINGS: LUNGS AND PLEURA: Stable subsegmental atelectasis within the right middle lobe and bilater al lower lobes. No new airspace disease, pleural effusion, or pneumothorax. AORTA AND GREAT VESSELS: No aneurysm or dissection. HEART: No pericardial effusion. PULMONARY ARTERIES: Nondiagnostic evaluation. HILAR AND MEDIASTINAL STRUCTURES: No identified masses or abnormal nodes. HARDWARE: None. UPPER ABDOMEN: No significant findings. THYROID AND OTHER SOFT TISSUES: No masses. No adenopathy. BONES: No acute or significant finding. 3D MIPS: Confirm above findings. OTHER: No other significant finding. IMPRESSION: NONDIAGNOSTIC FOR PULMONARY EMBOLUS. NO ACUTE INTRATHORACIC PROCESS IDENTIFIED. TECHNICAL DOCUMENTATION: JOB ID: [id number] [facility] [id number]: Final reports with documentation of one or more dose reduction techniques (e.g., Automate d exposure control, adjustment of the mA and/or kV according to patient size, use of iterative recons truction technique) 2010 [employer]- All Rights Reserved
[2016-11-27] MEDS: BUDESONIDE NEB 0.5 MG/2 ML AMPUL NEB SCH ×2 (08:55→21:03)
[2016-11-27] MEDS: CEFEPIME HCL 1 GM in DEXTROSE 5%-WATER 50 ML IV SCH ×2 (09:29→21:07)
[2016-11-27] MEDS: GUAIFENESIN 600 MG TABLET.SA PO SCH ×2 (09:29→21:08)
[2016-11-27] MEDS: CHOLECALCIFEROL (D3) 1,000 UNIT TABLET PO SCH (09:29)
[2016-11-27] MEDS: ENOXAPARIN SODIUM INJ 40 MG/0.4 ML DISP.SYRIN SUBCUT SCH (09:30)
--- NOTE | 2016-11-27 10:29 | PDOC PROGRESS REPORT ---
Subjective Progress Note for:: 11/27/16 Subjective:: Patient is currently doing much better. Patient's denied any chest pain denied any shortness of the breath. According to the sisters she think patients can go back to the [facility] Physical Exam Vital Signs: Temp Pulse Resp BP Pulse Ox 98.1 F 111 H 18 127/62 H 100 11/27/16 09:00 11/27/16 09:00 11/27/16 09:00 11/27/16 09:00 11/27/16 09:00 Pulse Oximeter Continuous Start: 11/25/16 16: 59 Freq: RTQ4 Status: Active Document 11/27/16 04:00 [facility] (Rec: 11/27/16 04:43 [facility] [email or web address]) Pulse Oximetry Assessment Equipment Usage Equipment Discontinued Continuous SpO2 Machine # [id number] Intake & Output 11/26/16 11/27/16 11/28/16 06:59 06:59 06:59 Intake Total 1240 1960 Balance 1240 1960 Weight 53.07 kg 53 kg General appearance: PRESENT: no acute distress Eye exam: PRESENT: PERRLA Mouth exam: PRESENT: neck supple Respiratory exam: PRESENT: clear to auscultation merari Cardiovascular exam: PRESENT: +S1, +S2 GI/Abdominal exam: PRESENT: normal bowel sounds, soft Neurological exam: PRESENT: alert, awake Skin exam: PRESENT: dry Results Laboratory Results: 11/27/16 06:30 11/27/16 06:30 11/27/16 11/27/16 06:30 06:30 WBC 7.9 RBC 3.28 L Hgb 10.8 L Hct 31.2 L MCV 95 MCH 33.0 MCHC 34.6 RDW 13.0 Plt Count 115 L Seg Neutrophils % 54.8 Lymphocytes % 32.6 Monocytes % 10.8 Eosinophils % 0.9 Basophils % 0.9 Absolute Neutrophils 4.3 Absolute Lymphocytes 2.6 Absolute Monocytes 0.8 Absolute Eosinophils 0.1 Absolute Basophils 0.1 Sodium 130.5 L Potassium 4.4 Chloride 101 Carbon Dioxide 27 Anion Gap 3 L BUN 9 Creatinine 0.42 L Est GFR ( Amer) > 60 Est GFR (Non-Af Amer) > 60 Glucose 83 Calcium 7.9 L Total Bilirubin 0.5 AST 14 ALT 17 Alkaline Phosphatase 25 L Total Protein 5.4 L Albumin 2.4 L Impressions: Chest X-Ray 11/25/16 13:37 IMPRESSION: No acute changes Chest/Abdomen CTA 11/25/16 14:04 IMPRESSION: NONDIAGNOSTIC FOR PULMONARY EMBOLUS. NO ACUTE INTRATHORACIC PROCESS IDENTIFIED. Assessment & Plan - Diagnosis (1) Hypoxia Is this a current diagnosis for this admission?: Yes Plan: all stable (2) Pneumonia Qualifiers: Pneumonia type: due to unspecified organism Laterality: right Lung location: lower lobe of lung Qualified Code(s): J18.1 - Lobar pneumonia, unspecified organism Is this a current diagnosis for this admission?: Yes Plan: Start the patient on IV cefepime and Zithromax and also cover with the Flagyl (3) Fever Qualifiers: Fever type: unspecified Qualified Code(s): R50.9 - Fever, unspecified Is this a current diagnosis for this admission?: Yes Plan: Will get the blood culture and sputum culture urine culture start the patient on IV antibiotic (4) Mental retardation Is this a current diagnosis for this admission?: Yes (5) Seizures Is this a current diagnosis for this admission?: Yes Plan: Continues to current medications - Time Time Spent with patient: 15-24 minutes Medications reviewed and adjusted accordingly: Yes Anticipated discharge: Home, Other Within: Other - Inpatient Certification Medical Necessity: Significant Comorbidiites Make Outpatient Treatment Too Risky 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
[2016-11-27] MEDS: AZITHROMYCIN 500 MG in DEXTROSE 5%-WATER 250 ML IV SCH (11:27)
[2016-11-27] MEDS: QUETIAPINE FUMARATE 100 MG TABLET PO SCH ×2 (14:21→21:08)
--- NOTE | 2016-11-27 15:04 | RADIOLOGY REPORT (SQ) ---
EXAM DESCRIPTION: CHEST PA/LAT COMPLETED DATE/TIME: 11/27/2016 2:45 pm REASON FOR STUDY: pnemonia COMPARISON: 11/25/2016 EXAM PARAMETERS: NUMBER OF VIEWS: two views TECHNIQUE: Digital Frontal and Lateral radiographic views of the chest acquired. RADIATION DOSE: NA LIMITATIONS: none FINDINGS: LUNGS AND PLEURA: Patchy bilateral lower lobe airspace disease with small right pleural ef fusion. MEDIASTINUM AND HILAR STRUCTURES: No masses or contour abnormalities. HEART AND VASCULAR STRUCTURES: Heart normal size. No evidence for failure. BONES: No acute findings. HARDWARE: None in the chest. OTHER: No other significant finding. IMPRESSION: PATCHY BILATERAL LOWER LOBE AIRSPACE DISEASE WITH SMALL RIGHT PLEURAL EFFUSION COMPATIBL E WITH PNEUMONIA AND SMALL PARAPNEUMONIC EFFUSION. TECHNICAL DOCUMENTATION: JOB ID: [id number] [employer]- All Rights Reserved
[2016-11-27] MEDS: POLYETHYLENE GLYCOL 3350 POWDER 17 GM/1 PACKET PO SCH (21:07)
[2016-11-27] MEDS: DIVALPROEX SODIUM 250 MG TAB.SR.24H PO SCH (21:08)
[2016-11-28] MEDS: LEVALBUTEROL HCL NEB 1.25 MG/3 ML AMPUL NEB SCH ×2 (02:44→08:18)
[2016-11-28 06:26] LABS: ALANINE AMINOTRANSFERASE 12 U/L (9-52); ALBUMIN 2.4 g/dL (3.5-5.0); ALKALINE PHOSPHATASE 31 U/L (38-126); ANION GAP 7 (5-19); ASPARTATE AMINO TRANSFERASE 17 U/L (14-36); BILIRUBIN,DIRECT 0.4 mg/dL (0.0-0.4); BILIRUBIN,TOTAL 0.4 mg/dL (0.2-1.3); BLOOD UREA NITROGEN 12 mg/dL (7-20); CALCIUM 8.4 mg/dL (8.4-10.2); CARBON DIOXIDE 27 mmol/L (22-30); CHLORIDE 101 mmol/L (98-107); CREATININE RESULT 0.45 mg/dL (0.52-1.25); GLUCOSE 87 mg/dL (75-110); POTASSIUM 4.8 mmol/L (3.6-5.0); SODIUM 134.6 mmol/L (137-145); TOTAL PROTEIN 5.3 g/dL (6.3-8.2)
[2016-11-28 07:17] LABS: ABSOLUTE EOSINOPHILS # (AUTO) 0.1 10^3/uL (0.0-0.6); ABSOLUTE LYMPHOCYTES (AUTO) 2.4 10^3/uL (0.5-4.7); ABSOLUTE MONOCYTES (AUTO) 0.6 10^3/uL (0.1-1.4); BASOPHILS % (AUTO) 0.8 % (0-2); EOSINOPHILS % (AUTO) 1.9 % (0-6); HEMATOCRIT 30.4 % (36.0-47.0); HEMOGLOBIN 10.4 g/dL (12.0-15.5); HGB HCT DIFFERENCE 0.8; LYMPHOCYTES % (AUTO) 46.9 % (13-45); MEAN CORPUSCULAR HGB CONC 34.3 g/dL (32.0-36.0); MEAN CORPUSCULAR VOLUME 96 fl (80-97); MONOCYTES % (AUTO) 11.3 % (3-13); RED BLOOD COUNT 3.16 10^6/uL (3.72-5.28); RED CELL DISTRIBUTION WIDTH 13.4 % (11.5-14.0); SEGMENTED NEUTROPHILS % (AUTO) 39.1 % (42-78); WHITE BLOOD COUNT 5.1 10^3/uL (4.0-10.5)
[2016-11-28] MEDS: DIVALPROEX SODIUM 500 MG TAB.SR.24H PO SCH (07:21)
[2016-11-28] MEDS: BUDESONIDE NEB 0.5 MG/2 ML AMPUL NEB SCH (08:18)
[2016-11-28] MEDS: CEFEPIME HCL 1 GM in DEXTROSE 5%-WATER 50 ML IV SCH (09:15)
[2016-11-28] MEDS: GUAIFENESIN 600 MG TABLET.SA PO SCH (09:15)
[2016-11-28] MEDS: CHOLECALCIFEROL (D3) 1,000 UNIT TABLET PO SCH (09:15)
[2016-11-28] MEDS: ENOXAPARIN SODIUM INJ 40 MG/0.4 ML DISP.SYRIN SUBCUT SCH (09:17)
--- NOTE | 2016-11-28 09:39 | PDOC DISCHARGE SUMMARY ---
General - Admit/Disc Date/PCP Admission Date/Primary Care Provider: 11/25/16 16:53 PAUL HIGGINS MD Discharge Date: 11/28/16 - Discharge Diagnosis (1) Hypoxia Is this a current diagnosis for this admission?: Yes Summary: resolved (2) Pneumonia Is this a current diagnosis for this admission?: Yes Summary: cont po med (3) Fever Is this a current diagnosis for this admission?: Yes Summary: resolved (4) Mental retardation Is this a current diagnosis for this admission?: Yes (5) Seizures Is this a current diagnosis for this admission?: Yes Summary: cont curr med - Additional Information Discharge Diet: As Tolerated Discharge Activity: Activity As Tolerated Home Medications: Cholecalciferol (Vitamin D3) [Vitamin D3 1000 Unit Tablet] 1,000 unit PO DAILY 11/25/16 Divalproex Sodium [Depakote ER 250 mg Tablet] 250 mg PO QHS 11/25/16 Divalproex Sodium [Depakote ER] 500 mg PO QAM 11/25/16 Divalproex Sodium [Depakote ER] 500 mg PO QHS 11/25/16 Fluticasone Propionate [Flonase Nasal Creighton 50 Mcg/Creighton 16 gm] 1 spray NASL Q12HP PRN 11/25/16 Fluvoxamine Maleate 50 mg PO QHS 11/25/16 Levonorgestrel-Ethin Estradiol [Introvale 0.15-0.03 mg Tablet] 1 tab PO QHS Polyethylene Glycol 3350 [Miralax Powder 17 gm/Packet] 8.5 gm PO Q2DAYS@2200 Prostat Sf Liquids 1 Oz 30 ml PO TID 11/25/16 Quetiapine Fumarate [Seroquel 100 mg Tablet] 50 mg PO DAILY@1400 11/25/16 Quetiapine Fumarate [Seroquel 100 mg Tablet] 150 mg PO QHS 11/25/16 Sennosides [Senna] 2 tab PO DAILY 11/25/16 Valacyclovir HCl [Valtrex] 2,000 mg PO Q12HP PRN MDD 2 DOSES 11/25/16 Azithromycin [Zithromax 250 mg Tablet] 250 mg PO DAILY #5 tablet 11/28/16 Budesonide [Pulmicort Neb 0.5 mg/2 ml Ampul] 0.5 mg NEB RTQ12 #60 ampul.neb Guaifenesin [Mucinex Sr 600 mg Tablet.sa] 600 mg PO Q12 #20 tablet.sa 11/28/16 Levalbuterol HCl [Xopenex Neb 1.25 mg/3 ml Ampul] 1.25 mg NEB RTQ6 PRN #120 vial.neb 11/28/16 Sulfamethoxazole/Trimethoprim [Bactrim Ds Tablet] 1 each PO BID #14 tablet 11/28 History of Present Illness History of Present Illness: DILLON YAP is a 31 year old female This is a 31-year-old female currently a resident of the intermediate the special need acute with a history of the cerebral palsy mental retardation's with the history of the recurrent pneumonia recently admitting in the hospital in 2 months back came to the my officeWith the complaint of fever 101 and the patient 's oxygen level was a 70-80% and patient was put on oxygen and patient was transferred to the emergency departmentIn the emergency department workup with the elevated white count and possible pneumonia and admitting the hospital for further evaluation and treatment Was doing okayPatient's according to the caregiver since yesterday he could be a possible small aspirations but patient does not have any PEG tubeAnd no seizures activity Hospital Course Hospital Course: This is a 31-year-old female she presented in the emergency department with a complaint of shortness of the breath fever patients initially oxygen level is also low. Patient's CT angiogram was negative for any PE and no other acute finding but very consistent with a possible underlying aspiration pneumonia patient was put on IV cefepime and also IV Flagyl and also IV Zithromax and patient response very well Also given Xopenex and Pulmicort nebulizer Patient's otherwise remained stable patient's walk in the hallway without oxygen 's and O2 sat is more than 90 persons Patient's CBC is all normal and patient's afebrile for more than 48 hours Very extensive discussions with the patient sisters with the patient is more agitated due to the higher mental conditions currently doing well and the sister suggest maybe getting sent back to the intermediate with the patient's feel much better and I think patient should go with the oral antibiotic and discussed with the caregiver at the care [place] to close monitor Continues to nebulizer treatments for another 4-5 days Patients need aspirations precautions and because of the patient's at this point she does not want to stay here will scheduled a modified barium swallow to further evaluate for the aspirations Physical Exam Vital Signs: Temp Pulse Resp BP Pulse Ox 98.3 F 88 19 96/54 L 98 11/28/16 04:00 11/28/16 04:00 11/28/16 04:00 11/28/16 04:00 11/28/16 04:00 Pulse Oximeter Continuous Start: 11/25/16 16: 59 Freq: RTQ4 Status: Active Document 11/28/16 03:34 STI (Rec: 11/28/16 03:35 [email or web address] [email or web address]) Pulse Oximetry Assessment Oxygen Saturation (92-100) 98 Oxygen Delivery Method Room Air Fraction of Inspired Oxygen (FIO2) 21 Equipment Usage Equipment Standby Continuous SpO2 Machine # [id number] Intake & Output 11/27/16 11/28/16 11/29/16 06:59 06:59 06:59 Intake Total 1960 1820 Balance 1960 1820 Weight 53 kg 53 kg General appearance: PRESENT: no acute distress, well-developed, well-nourished Head exam: PRESENT: atraumatic, normocephalic Eye exam: PRESENT: conjunctiva pink, EOMI, PERRLA. ABSENT: scleral icterus Ear exam: PRESENT: normal external ear exam Mouth exam: PRESENT: moist, tongue midline Neck exam: PRESENT: full ROM. ABSENT: carotid bruit, JVD, lymphadenopathy, thyromegaly Cardiovascular exam: PRESENT: RRR. ABSENT: diastolic murmur, rubs, systolic murmur Pulses: PRESENT: normal dorsalis pedis pul, +2 pedal pulses bilateral Vascular exam: PRESENT: normal capillary refill GI/Abdominal exam: PRESENT: normal bowel sounds, soft. ABSENT: distended, guarding, mass, organolmegaly, rebound, tenderness Rectal exam: PRESENT: deferred Neurological exam: PRESENT: alert, awake. ABSENT: motor sensory deficit Psychiatric exam: PRESENT: appropriate affect, normal mood. ABSENT: homicidal ideation, suicidal ideation Skin exam: PRESENT: dry, intact, warm. ABSENT: cyanosis, rash Results Laboratory Results: 11/28/16 06:45 11/28/16 05:47 11/28/16 11/28/16 11/28/16 05:47 05:47 06:45 WBC Cancelled 5.1 RBC Cancelled 3.16 L Hgb Cancelled 10.4 L Hct Cancelled 30.4 L MCV Cancelled 96 MCH Cancelled 33.0 MCHC Cancelled 34.3 RDW Cancelled 13.4 Plt Count Cancelled 151 Seg Neutrophils % Cancelled 39.1 L Lymphocytes % Cancelled 46.9 H Monocytes % Cancelled 11.3 Eosinophils % Cancelled 1.9 Basophils % Cancelled 0.8 Absolute Neutrophils Cancelled 2.0 Absolute Lymphocytes Cancelled 2.4 Absolute Monocytes Cancelled 0.6 Absolute Eosinophils Cancelled 0.1 Absolute Basophils Cancelled 0.0 Sodium 134.6 L Potassium 4.8 Chloride 101 Carbon Dioxide 27 Anion Gap 7 BUN 12 Creatinine 0.45 L Est GFR ( Amer) > 60 Est GFR (Non-Af Amer) > 60 Glucose 87 Calcium 8.4 Total Bilirubin 0.4 AST 17 ALT 12 Alkaline Phosphatase 31 L Total Protein 5.3 L Albumin 2.4 L Impressions: Chest/Abdomen CTA 11/25/16 14:04 IMPRESSION: NONDIAGNOSTIC FOR PULMONARY EMBOLUS. NO ACUTE INTRATHORACIC PROCESS IDENTIFIED. Chest X-Ray 11/27/16 00:00 IMPRESSION: PATCHY BILATERAL LOWER LOBE AIRSPACE DISEASE WITH SMALL RIGHT PLEURAL EFFUSION COMPATIBLE WITH PNEUMONIA AND SMALL PARAPNEUMONIC EFFUSION. Plan Time Spent: Greater than 30 Minutes - d/w sister and caregiver about pt condition schd out pt modifid barium swllow check cbc and cam7 in 1 wk repat cxr after antiboitics Also's patient scheduled for modified barium swallow
[2016-11-28] MEDS: AZITHROMYCIN 500 MG in DEXTROSE 5%-WATER 250 ML IV SCH (11:09)
[2016-11-28 12:20] VITALS: BP 90/75
== END 2016-11-28 12:40 | disposition other institution (70) | DRG 179 ==
LOC: ER 13:27 → EH 16:53 → UNDOADMIN 17:07 → 4N 18:20
PROVIDERS: ADMIT Family Medicine; ATTEND Family Medicine
DX: J69.0 Pneumonitis due to inhalation of food and vomit (principal); G80.9 Cerebral palsy, unspecified; G40.909 Epilepsy, unspecified, not intractable, without status epilepticus; R09.02 Hypoxemia; F79 Unspecified intellectual disabilities; K21.9 Gastro-esophageal reflux disease without esophagitis; Z88.0 Allergy status to penicillin; Z78.1 Physical restraint status; Z87.01 Personal history of pneumonia (recurrent); I25.2 Old myocardial infarction; Z79.899 Other long term (current) drug therapy
CPT/HCPCS: 36415; 36600; 71020; 71275; 80053; 82550; 82803; 83605; 83880; 84484; 84703; 85025; 87040; 93005; 93010; 94667; 94668; 94762; 96365; 99285; G8996-GN; G8997-GN; G8998-GN; J0456; J0692; J0696; J1650; J2250; J3490; J7030; J7060

== ENCOUNTER → 2016-12-02 | Outpatient (CLI) | payer MEDICARE, OTHER, MEDICAID ==
--- NOTE | 2016-12-03 17:00 | RADIOLOGY REPORT (SQ) ---
EXAM DESCRIPTION: COOKIE SWALLOW COMPLETED DATE/TIME: 12/02/2016 10:00 am REASON FOR STUDY: ASPIRATION PNEUMONIA (J69.0), DYSPHAGIA UNSPECIFIED R 13.10 J69.0 PNEUMONITIS DUE TO INHALATION OF FOOD AND VOMIT COMPARISON: None. TECHNIQUE: Videofluoroscopic swallowing examination was performed in conjunction with speech patholo gy. Videofluoroscopic imaging was obtained and reviewed and these are the findings: RADIATION DOSE: Total fluoroscopy time: 2 minutes 13 seconds 1 fluoroscopy image saved to PACS. LIMITATIONS: None FINDINGS: The patient was brought into the fluoro room and placed upright on a modified barium swall ow chair. The patient was then given multiple consistencies mixed with barium to swallow under live fluoroscopic video guidance. According to the Speech Pathologist there was laryngeal penetration and tracheal aspiration with thin liquid consistencies. All other consistencies were swallowed without aspiration. Normal oral and pharyngeal transit time noted. Mild to moderate post swallow residuals are seen within the vallecula and piriform sinuses. Please see speech pathology report for further d etails and recommendations. IMPRESSION: LARYNGEAL PENETRATION AND TRACHEAL ASPIRATION WITH THIN LIQUID CONSISTENCIES.PLEASE SEE SPEECH PATHOLOGIST REPORT FOR OTHER FINDINGS AND RECOMMENDATIONS. COMMENT: Quality ID [id number]: Final reports for procedures using fluoroscopy that document radiation exp osure indices, or exposure time and number of fluorographic images (if radiation exposure indices are not available) TECHNICAL DOCUMENTATION: JOB ID: [id number] [employer]- All Rights Reserved
--- NOTE | 2016-12-03 18:29 | ST Modified Barium Swallow ---
Recommendation - Recommendations Recommendations: Recommend honey thick liquids and mechanical soft ground meats diet. Drinking from sippy cup for controlled flow rate of liquids. Alternate sips and bites to reduce residue. Medical Diagnoses - Medical Diagnoses Medical Diagnosis Description & ICD-10 Code(s): J69.0 Aspiration pneumonia Other Medical Diagnoses/Co-Morbidities: CP, seizure disorder ST Modified Barium Swallow - General Date: 12/02/16 Referring Physician: Dr. Herman Sanchez Risks/Precautions: Falls, Aspiration - History History obtained from: Parent/Caregiver - Patient arrived with 2 caregivers this day in wheelchair. Caregiver acted as informant this day. This patient was recently admitted for pneumonia, possible aspiration pneumonia. Is currently on thin liquid and mechanical soft ground meats diet. Is fed with assistance with reduced rate of presentation. Medications: Per caregiver: anti seizure medication, depacote, seraquil Allergies: none - Functional Status Prior Functional Status: INDEPENDENT: feeding - required assistance at all meals - Subjective Patient/caregiver goal(s): r/o aspiration Cognitive-Linguistic Function: Other - unable to follow directions/answer questions Speech Intelligibility: Non-verbal Current Nutritional Means: PO Current PO diet: Mechanical- ground Current symptoms: Hx of asp. pneumonia Pain: 0/5 - Objective Assessment: Upright, Left Lateral - Food Trials Used Food trials used: Thin liquids, Honey-thickened liquids, Pureed, Regular The patient: fed by ST, via cup, via spoon, via straw - Oral-Motor Skills Dentition: Full Laryngeal Function: no volitional swallow, no volitional cough/clear Oral Motor Skills: Unable to follow directions for oral mech exam. Observed to have adequate range of motion and strength of oral musculature. - Assessment Oral prep: Moderately Impaired Labial closure: Adequate Leakage: None Mastication: Tongue thrust Lingual Movement: Discoordinated Oral stage: Moderately Impaired - Pharyngeal Stage Initiation of Pharyngeal Stage Reflex: Delayed Reflex Delay Time (Seconds): 2 Pre-swallow pooling in valleculae: Moderate - on liquid and puree textures Pre-Swallow pooling in pyriforms: Mild - on liquid textures Reduced pharyngeal peristalsis/contraction: Yes - residue present on solid textures Multiple Swallows with: Cleared w/ Liquid Assist Post-swallow residulas vallecular: Mild - Fall Risk Assessment Medications/Conditions that increase fall risks include: Antidepressants, sedatives, anti-arrhythmic, diuretic, benzodiazipenes, neuroleptics. BP regulation problems, cardiac problems, balance or gait deficits, neurological problems. Is patient considered at risk for falls: yes Fall Risk Actions Taken: No action needed - Treatment / Educational Needs: Treatment/Education Needs: Treatment consisted of patient education on the role of the Speech Pathologist. Patient's plan of care and golas were communicated as well as scheduling and attendance policies. Recommendations for initial home program were shared. Patient demonstrated understanding and verbalized agreement. - Impression/Summary Laryngeal Penetration: Yes, Deep, Delayed cough, during swallow Consistency: Thin Tracheal Aspiration: yes, deep, delayed cough, during swallow Productive cough: No Effective Clearing: no Patient presents with: Pharyngeal stage dysph., Mild-Moderate Risk of Aspiration: Moderate Risk of nutritional compromise: Mild Risk due to: aspiration of thin liquids,delayed cough reflex Evaluation and Findings: Patient presented with oral and pharyngeal phase dysphagia. Discoordinated movements and extraneous head movements during study prevented use of compensatory strategies other than diet modifications. Kyle aspiration of thin liquids seen x2, with delayed cough which did not clear airway. No aspiration seen on honey thick liquids, or solid trials. Residue was seen for puree and regular solids, however, this cleared with thickened liquid wash. - Recommendations Solid diet recommendations: Mechanical Soft, Ground Meat Liquid Diet Modification: Honey-Thick Strict aspiration precautions: Yes Pt/Family education and followup with MD: Yes Recommended techniques: Fully Upright During Meal, Small Bites and Sips - reduce flow rate of liquids, Alternate Bites/Sips Supervision: Constant Information, Precautions and Recommendations: Family Member (Written), Family Member (Verbal) - Time Total Time: 35 - Plan of Care Patient to follow-up with referring physician: Yes Strategies to optimize patient understanding include:: ongoing assessment of educational needs, implementation of educational strategies, and re-education. - - -: Thank you for the opportunity to work with this patient and his/her family. Should you have any questions about this patient's plan or progress, I can be reached at [phone]. Charge G Code? - - -: No
== END ==
LOC: RAD 08:37
PROVIDERS: ATTEND Family Medicine
DX: J69.0 Pneumonitis due to inhalation of food and vomit (principal)
CPT/HCPCS: 74230

== ENCOUNTER → 2016-12-06 | Outpatient (CLI) | payer MEDICARE, OTHER, MEDICAID ==
--- NOTE | 2016-12-06 16:14 | RADIOLOGY REPORT (SQ) ---
EXAM DESCRIPTION: CHEST PA/LATERAL COMPLETED DATE/TIME: 12/06/2016 3:36 pm REASON FOR STUDY: PNEUMONITIS DUE TO INHALATION OF FOOD AND VOMIT COMPARISON: Teen 2017 EXAM PARAMETERS: NUMBER OF VIEWS: two views TECHNIQUE: Digital Frontal and Lateral radiographic views of the chest acquired. RADIATION DOSE: NA LIMITATIONS: none FINDINGS: LUNGS AND PLEURA: Subsegmental airspace disease in the middle lobe medial segment. MEDIASTINUM AND HILAR STRUCTURES: No masses or contour abnormalities. HEART AND VASCULAR STRUCTURES: Heart normal size. No evidence for failure. BONES: No acute findings. HARDWARE: None in the chest. OTHER: No other significant finding. IMPRESSION: Atelectasis or residual pneumonia in the right middle lobe. TECHNICAL DOCUMENTATION: JOB ID: [id number] [employer]- All Rights Reserved
== END ==
LOC: OD 14:42
PROVIDERS: ATTEND Family Medicine
DX: J69.0 Pneumonitis due to inhalation of food and vomit (principal)
CPT/HCPCS: 71020

== ENCOUNTER → 2016-12-16 | Outpatient (CLI) | payer MEDICARE, OTHER, MEDICAID ==
--- NOTE | 2016-12-16 13:12 | RADIOLOGY REPORT (SQ) ---
EXAM DESCRIPTION: CHEST PA/LATERAL COMPLETED DATE/TIME: 12/16/2016 1:00 pm REASON FOR STUDY: PNEUMONIA, UNSPECIFIED ORGANISM COMPARISON: 12/06/2016 EXAM PARAMETERS: NUMBER OF VIEWS: two views TECHNIQUE: Digital Frontal and Lateral radiographic views of the chest acquired. RADIATION DOSE: NA LIMITATIONS: none FINDINGS: LUNGS AND PLEURA: There is persistent opacification the right middle lobe. On the PA view this appears slightly more prominent than on prior study. MEDIASTINUM AND HILAR STRUCTURES: No masses or contour abnormalities. HEART AND VASCULAR STRUCTURES: Heart normal size. No evidence for failure. BONES: No acute findings. HARDWARE: None in the chest. OTHER: No other significant finding. IMPRESSION: Right middle lobe pneumonia versus atelectasis. TECHNICAL DOCUMENTATION: JOB ID: [id number] [employer]- All Rights Reserved
== END ==
LOC: OD 12:32
PROVIDERS: ATTEND Family Medicine
DX: J18.9 Pneumonia, unspecified organism (principal)
CPT/HCPCS: 71020

== ENCOUNTER → 2017-06-30 | Outpatient (CLI) | payer MEDICARE, OTHER, MEDICAID ==
--- NOTE | 2017-06-30 16:52 | RADIOLOGY REPORT (SQ) ---
EXAM DESCRIPTION: CHEST PA/LATERAL COMPLETED DATE/TIME: 06/30/2017 4:42 pm REASON FOR STUDY: COUGH R05 COUGH COMPARISON: 12/16/2016 NUMBER OF VIEWS: Two view TECHNIQUE: Frontal and lateral radiographic images of the chest acquired. LIMITATIONS: None. FINDINGS: LUNGS AND PLEURA: No evidence of pulmonary edema or pneumonia. MEDIASTINUM AND HILAR STRUCTURES: Stable heart size and mediastinal structures. HEART AND VASCULAR STRUCTURES: Stable appearance. BONES: Pectus deformity. HARDWARE: None in the chest. OTHER: No other significant finding. IMPRESSION: No acute findings in the chest. TECHNICAL DOCUMENTATION: JOB ID: [id number] [employer]- All Rights Reserved Reading location - IP/workstation name: [email or web address]
== END ==
LOC: OD 16:24
PROVIDERS: ATTEND Family Medicine
DX: R05 Cough (principal)
CPT/HCPCS: 71046

== ENCOUNTER → 2017-07-19 | Outpatient (CLI) | payer MEDICARE, OTHER, MEDICAID ==
[2017-07-19 11:06] LABS: ABSOLUTE MONOCYTES (AUTO) 0.8 10^3/uL (0.1-1.4); ABSOLUTE NEUT (AUTO) 6.3 10^3/uL (1.7-8.2); BASOPHILS % (AUTO) 0.4 % (0-2); EOSINOPHILS % (AUTO) 0.1 % (0-6); HEMATOCRIT 38.8 % (36.0-47.0); HEMOGLOBIN 13.2 g/dL (12.0-15.5); LYMPHOCYTES % (AUTO) 29.6 % (13-45); MEAN CORPUSCULAR HGB CONC 34.1 g/dL (32.0-36.0); MEAN CORPUSCULAR VOLUME 94 fl (80-97); MONOCYTES % (AUTO) 8.1 % (3-13); PLATELET COUNT 172 10^3/uL (150-450); RED BLOOD COUNT 4.14 10^6/uL (3.72-5.28); RED CELL DISTRIBUTION WIDTH 13.3 % (11.5-14.0); SEGMENTED NEUTROPHILS % (AUTO) 61.8 % (42-78); TOTAL CELLS COUNTED % (AUTO) 100 %; WHITE BLOOD COUNT 10.2 10^3/uL (4.0-10.5)
[2017-07-19 13:02] LABS: ALANINE AMINOTRANSFERASE 10 U/L (9-52); ALBUMIN 2.8 g/dL (3.5-5.0); ALKALINE PHOSPHATASE 36 U/L (38-126); ANION GAP 9 (5-19); ASPARTATE AMINO TRANSFERASE 16 U/L (14-36); BILIRUBIN,DIRECT 0.3 mg/dL (0.0-0.4); BILIRUBIN,TOTAL 0.6 mg/dL (0.2-1.3); BLOOD UREA NITROGEN 14 mg/dL (7-20); CALCIUM 8.7 mg/dL (8.4-10.2); CARBON DIOXIDE 26 mmol/L (22-30); CHLORIDE 100 mmol/L (98-107); CHOLESTEROL 132.87 mg/dL (0-200); GLUCOSE 75 mg/dL (75-110); POTASSIUM 4.7 mmol/L (3.6-5.0); SODIUM 135.4 mmol/L (137-145); TOTAL PROTEIN 6.2 g/dL (6.3-8.2); TRIGLYCERIDES 79 mg/dL (<150)
[2017-07-19 13:14] LABS: DIRECT LDL 77 mg/dL (<100); PREALBUMIN 18.2 mg/dL (17.6-36.0)
[2017-07-19 13:18] LABS: AMYLASE < 30 U/L (30-110)
== END ==
LOC: CB 09:43
PROVIDERS: ATTEND Family Medicine
DX: Z00.00 Encounter for general adult medical examination without abnormal findings (principal); E55.9 Vitamin D deficiency, unspecified; G40.89 Other seizures; K59.00 Constipation, unspecified; Z79.899 Other long term (current) drug therapy
CPT/HCPCS: 36415; 80053; 80061; 80164; 82150; 82306; 84134; 84443; 85025

== ENCOUNTER → 2018-07-25 | Outpatient (CLI) | payer MEDICARE, OTHER, MEDICAID ==
[2018-07-25 14:41] LABS: MEAN CORPUSCULAR HEMOGLOBIN 32.6 pg (27.0-33.4); MEAN CORPUSCULAR HGB CONC 35.2 g/dL (32.0-36.0); MEAN CORPUSCULAR VOLUME 93 fl (80-97); PLATELET COUNT 114 10^3/uL (150-450); RED BLOOD COUNT 3.67 10^6/uL (3.72-5.28); RED CELL DISTRIBUTION WIDTH 13.3 % (11.5-14.0); WHITE BLOOD COUNT 26.5 10^3/uL (4.0-10.5)
--- NOTE | 2018-07-25 14:46 | RADIOLOGY REPORT (SQ) ---
EXAM DESCRIPTION: CHEST PA/LATERAL COMPLETED DATE/TIME: 07/25/2018 2:15 pm REASON FOR STUDY: FLU-LIKE SYMPTOMS COMPARISON: 11/27/2016 EXAM PARAMETERS: NUMBER OF VIEWS: two views TECHNIQUE: Digital Frontal and Lateral radiographic views of the chest acquired. RADIATION DOSE: NA LIMITATIONS: none FINDINGS: LUNGS AND PLEURA: There is basilar airspace disease and small effusions. Similar findings were present in 2017. This most likely represents recurrent pneumonia. MEDIASTINUM AND HILAR STRUCTURES: No masses or contour abnormalities. HEART AND VASCULAR STRUCTURES: Stable in appearance. BONES: No acute findings. HARDWARE: None in the chest. OTHER: No other significant finding. IMPRESSION: Small effusions and bibasilar airspace disease consistent with pneumonia. TECHNICAL DOCUMENTATION: JOB ID: [id number] [employer]- All Rights Reserved Reading location - IP/workstation name: [email or web address]
[2018-07-25 15:05] LABS: ALANINE AMINOTRANSFERASE 18 U/L (9-52); ALBUMIN 2.7 g/dL (3.5-5.0); ALKALINE PHOSPHATASE 55 U/L (38-126); ANION GAP 8 (5-19); ASPARTATE AMINO TRANSFERASE 20 U/L (14-36); BILIRUBIN,DIRECT 0.3 mg/dL (0.0-0.4); BILIRUBIN,TOTAL 0.6 mg/dL (0.2-1.3); BLOOD UREA NITROGEN 12 mg/dL (7-20); CALCIUM 8.9 mg/dL (8.4-10.2); CARBON DIOXIDE 24 mmol/L (22-30); CHLORIDE 100 mmol/L (98-107); GLUCOSE 93 mg/dL (75-110); POTASSIUM 3.9 mmol/L (3.6-5.0); SODIUM 131.5 mmol/L (137-145); TOTAL PROTEIN 5.7 g/dL (6.3-8.2)
[2018-07-25 15:40] LABS: ABSOLUTE LYMPHOCYTES# (MANUAL) 2.7 10^3/uL (0.5-4.7); ABSOLUTE MONOCYTES # (MANUAL) 1.6 10^3/uL (0.1-1.4); ABSOLUTE NEUTROPHILS# (MANUAL) 22.3 10^3/uL (1.7-8.2); BAND NEUTROPHILS % (MANUAL) 9 % (3-5); BASOPHILS % (MANUAL) 0 % (0-2); EOSINOPHILS % (MANUAL) 0 % (0-6); LYMPHOCYTES % (MANUAL) 10 % (13-45); METAMYELOCYTES % (MANUAL) 1 % (0); MONOCYTES % (MANUAL) 6 % (3-13); SEGMENTED NEUTROPHILS % (MAN) 74 % (42-78); TOTAL CELLS COUNTED 100
[2018-07-25 15:41] LABS: PLATELET COMMENT DECREASED; RBC MORPHOLOGY COMMENT NORMO-CYTIC/CHROMIC; TOXIC GRANULATION 1+; TOXIC VACUOLATION PRESENT
== END ==
LOC: OD 13:40
PROVIDERS: ATTEND Physician Assistant
DX: G80.9 Cerebral palsy, unspecified (principal); R68.89 Other general symptoms and signs
CPT/HCPCS: 71046; 80053; 85025

== ENCOUNTER 2018-07-26 11:50 | Inpatient (IN) | payer MEDICARE, OTHER, MEDICAID ==
[2018-07-26] MEDS ORDERED: IPRATROPIUM/ALBUTEROL 0.5-2.5 MG/3 ML AMPUL NEB PRN (12:27)
[2018-07-26] MEDS ORDERED: NORMAL SALINE 1000 ML 1,000 ML IV PRN (12:27)
--- NOTE | 2018-07-26 12:55 | RADIOLOGY REPORT (SQ) ---
EXAM DESCRIPTION: CHEST SINGLE VIEW COMPLETED DATE/TIME: 07/26/2018 12:46 pm REASON FOR STUDY: Pneumonia COMPARISON: None. EXAM PARAMETERS: NUMBER OF VIEWS: One view. TECHNIQUE: Single frontal radiographic view of the chest acquired. RADIATION DOSE: NA LIMITATIONS: None. FINDINGS: LUNGS AND PLEURA: There is increasing opacity in the right base. MEDIASTINUM AND HILAR STRUCTURES: No masses. Contour normal. HEART AND VASCULAR STRUCTURES: Heart normal in size. Normal vasculature. BONES: Scoliosis. HARDWARE: None in the chest. OTHER: No other significant finding. IMPRESSION: Increasing right lower lobe pneumonia. TECHNICAL DOCUMENTATION: JOB ID: [id number] [employer]- All Rights Reserved Reading location - IP/workstation name: [email or web address]
--- NOTE | 2018-07-26 13:05 | ER Document Report ---
HPI - HPI Time Seen by Provider: 07/26/18 12:58 Pain Level: 3 Notes: Patient is a 32-year-old female with a history of cerebral palsy and developmental delay who presents emergency department for direct admit orders for Dr. Higgins. She has been having upper respiratory infection with leukocytosis and fever for the past 2-3 days. Orders already placed by Dr. Higgins. There are no rooms in the hospital for admission at this time so she will be in our emergency department until one opens up, but will be under the care of Dr. Higgins as he has already placed admission orders. Commercial Counsel is in agreement with plan. - ROS ROS Unobtainable: Yes ROS unobtainable due to patient's medical condition - REPRODUCTIVE Reproductive: DENIES: : Past Medical History - Social History Smoking Status: Never Smoker Family History: Reviewed & Not Pertinent Patient has suicidal ideation: No Patient has homicidal ideation: No Pulmonary Medical History: Reports: Hx Pneumonia Neurological Medical History: Reports: Hx Seizures Renal/ Medical History: Denies: Hx Peritoneal Dialysis GI Medical History: Reports: Hx Gastroesophageal Reflux Disease Psychiatric Medical History: Reports: Other - Immunizations Hx Diphtheria, Pertussis, Tetanus Vaccination: Yes Vertical Provider Document - CONSTITUTIONAL Agree With Documented VS: Yes Notes: PHYSICAL EXAMINATION: GENERAL: Well-appearing, well-nourished and in no acute distress. LUNGS: Crackles RLL. no retractions HEART: Regular rate and rhythm without murmurs, rubs, gallops. ABDOMEN: Soft, nontender, nondistended abdomen. No guarding, no rebound. No masses appreciated. Normal bowel sounds present. No CVA tenderness bilaterally. Extremities: No cyanosis, clubbing, or edema b/l. PSYCH: Normal mood, normal affect- for her baseline SKIN: Warm, Dry, normal turgor, no rashes or lesions noted. - INFECTION CONTROL TRAVEL OUTSIDE OF THE [place] IN LAST 30 DAYS: No Course - Re-evaluation Re-evalutation: 07/26/18 13:03 Patient is under the care currently Dr. Higgins who is placed admission orders. She will be here in the emergency department until a room opens for her in the hospital. Tylenol will be given at this time for her fever. Commercial Counsel is in agreement with this plan. - Vital Signs Vital signs: Temp Pulse Resp BP Pulse Ox 101.4 F H 96 20 136/96 H 07/26/18 12:07 07/26/18 12:07 07/26/18 12:07 07/26/18 12:07 Discharge - Discharge Clinical Impression: Pneumonia Qualifiers: Pneumonia type: due to unspecified organism Laterality: right Lung location: lower lobe of lung Qualified Code(s): J18.1 - Lobar pneumonia, unspecified organism Fever Qualifiers: Fever type: unspecified Qualified Code(s): R50.9 - Fever, unspecified Condition: Stable Disposition: ADMITTED INPATIENT Admitting Provider: Daniel Unit Admitted: Telemetry Referrals: PAUL HIGGINS MD [Primary Care Provider] - Follow up as needed
--- NOTE | 2018-07-26 13:12 | PDOC H&P ---
History of Present Illness Admission Date/PCP: PAUL HIGGINS MD Patient complains of: pnemonia History of Present Illness: DILLON YAP is a 32 year old female Ms. Yap is a 32yo female with history of CP, IDD and epilepsy who presents today with her caregivers for 1 day FU of fever, cough and flu like symptoms. She began to have runny nose and decreased appetite on Tuesday. Tuesday, she developed cough, not productive and 101.8 fever, axillary. She was febrile in clinic yesterday at 100.5 after being given Tylenol. She was sent for CXR that showed patchy airspace disease likely peumonia. CBC showed WBC 26 and Neutrophils 22. She was started on Tamiflu, Zithromax and Rocephin. She had 2 doses of Zithromax last night and was given 1g Rocephin IM this morning. Caregivers have noticed she has had increase in cough since yesterday, have been pushing more fluids.She has no wheezing. She had one loose stool yesterda. She has no N/V. Her caregivers say no one else at the center has recently tested positive for flu or has similar symptoms. She gets menses q3 mo. Past Medical History Pulmonary Medical History: Reports: Pneumonia Neurological Medical History: Reports: Seizures GI Medical History: Reports: Gastroesophageal Reflux Disease Psychiatric Medical History: Reports: General Anxiety Disorder, Other Social History Information Source: Legal Guardian Smoking Status: Never Smoker Frequency of Alcohol Use: None Hx Recreational Drug Use: No Drugs: None Hx Prescription Drug Abuse: No Family History Family History: Reviewed & Not Pertinent Parental Family History Reviewed: Yes Children Family History Reviewed: Yes Sibling(s) Family History Reviewed.: Yes Medication/Allergy Home Medications: Cholecalciferol (Vitamin D3) [Vitamin D3 1000 Unit Tablet] 1,000 unit PO DAILY 11/25/16 Divalproex Sodium [Depakote ER 250 mg Tablet] 250 mg PO QHS 11/25/16 Divalproex Sodium [Depakote ER] 500 mg PO QAM 11/25/16 Divalproex Sodium [Depakote ER] 500 mg PO QHS 11/25/16 Fluticasone Propionate [Flonase Nasal [place] 50 Mcg/[place] 16 gm] 1 spray NASL Q12HP PRN 11/25/16 Fluvoxamine Maleate 50 mg PO QHS 11/25/16 Levonorgestrel-Ethin Estradiol [Introvale 0.15-0.03 mg Tablet] 1 tab PO QHS 11/25/16 Polyethylene Glycol 3350 [Miralax Powder 17 gm/Packet] 8.5 gm PO Q2DAYS@2200 11/25/16 Prostat Sf Liquids 1 Oz 30 ml PO TID 11/25/16 Quetiapine Fumarate [Seroquel 100 mg Tablet] 50 mg PO DAILY@1400 11/25/16 Quetiapine Fumarate [Seroquel 100 mg Tablet] 150 mg PO QHS 11/25/16 Sennosides [Senna] 2 tab PO DAILY 11/25/16 Valacyclovir HCl [Valtrex] 2,000 mg PO Q12HP PRN MDD 2 DOSES 11/25/16 Azithromycin [Zithromax 250 mg Tablet] 250 mg PO DAILY #5 tablet 11/28/16 Budesonide [Pulmicort Neb 0.5 mg/2 ml Ampul] 0.5 mg NEB RTQ12 #60 ampul.neb 11/28/16 Guaifenesin [Mucinex Sr 600 mg Tablet.sa] 600 mg PO Q12 #20 tablet.sa 11/28/16 Levalbuterol HCl [Xopenex Neb 1.25 mg/3 ml Ampul] 1.25 mg NEB RTQ6 PRN #120 vial.neb 11/28/16 Sulfamethoxazole/Trimethoprim [Bactrim Ds Tablet] 1 each PO BID #14 tablet 11/28/16 Allergies/Adverse Reactions: Benzodiazepines Allergy (Verified 07/26/18 11:51) chloral hydrate [Chloral Hydrate] Allergy (Verified 07/26/18 11:51) topiramate [From Topamax] Allergy (Verified 07/26/18 11:51) Review of Systems ROS unobtainable: Due to mental status All systems: reviewed and no additional remarkable complaints except as stated Physical Exam Vital Signs: Temp Pulse Resp BP Pulse Ox 101.4 F H 96 20 136/96 H 07/26/18 12:07 07/26/18 12:07 07/26/18 12:07 07/26/18 12:07 Intake & Output 07/25/18 07/26/18 07/27/18 06:59 06:59 06:59 Weight 70 kg General appearance: PRESENT: no acute distress, well-developed, well-nourished Head exam: PRESENT: atraumatic, normocephalic Eye exam: PRESENT: conjunctiva pink, EOMI, PERRLA. ABSENT: scleral icterus Ear exam: PRESENT: normal external ear exam Mouth exam: PRESENT: moist, tongue midline Neck exam: PRESENT: full ROM. ABSENT: carotid bruit, JVD, lymphadenopathy, thyromegaly Respiratory exam: PRESENT: decreased breath sounds, rhonchi Cardiovascular exam: PRESENT: RRR. ABSENT: diastolic murmur, rubs, systolic murmur Vascular exam: PRESENT: normal capillary refill GI/Abdominal exam: PRESENT: normal bowel sounds, soft. ABSENT: distended, guarding, mass, organolmegaly, rebound, tenderness Rectal exam: PRESENT: deferred Musculoskeletal exam: PRESENT: ambulatory Neurological exam: PRESENT: alert, awake, oriented to person, oriented to place, oriented to time, oriented to situation, CN II-XII grossly intact. ABSENT: motor sensory deficit Psychiatric exam: PRESENT: appropriate affect, normal mood. ABSENT: homicidal ideation, suicidal ideation Skin exam: PRESENT: dry, intact, warm. ABSENT: cyanosis, rash Assessment & Plan - Diagnosis (1) Pneumonia Qualifiers: Lung location: unspecified part of lung Is this a current diagnosis for this admission?: Yes Plan: Increasing right lower lobe pneumonia Start the patient on IV antibiotics (2) Fever Qualifiers: Fever type: unspecified Qualified Code(s): R50.9 - Fever, unspecified Is this a current diagnosis for this admission?: Yes Plan: Due to the above conditions Patients have a high suspicious of the flulike symptoms given the flu test was negative we will cover with the Tamiflu in the beginning but with the persistent with a pneumonia and elevated white count most likely a bacterial we will discontinues to Tamiflu (3) Mental retardation Is this a current diagnosis for this admission?: Yes (4) Seizures Is this a current diagnosis for this admission?: Yes Plan: continue a current medications - Time Time Spent: 30 to 50 Minutes Medications reviewed and adjusted accordingly: Yes Anticipated discharge: Other Within: Other - Inpatient Certification Based on my medical assessment, after consideration of the patient's comorbidities, presenting symptoms, or acuity I expect that the services needed warrant INPATIENT care.: Yes I certify that my determination is in accordance with my understanding of Medicare's requirements for reasonable and necessary INPATIENT services [42 CFR 412.3e].: Yes Medical Necessity: Failure to Improve With Outpatient Therapy, Significant Comorbidiites Make Outpatient Treatment Too Risky, Need For IV Fluids, Need for IV Antibiotics Post Hospital Care: D/C Sales Assistant Displays Documentation - Plan Summary Plan Summary: Patient admitted in the hospital Discussed with the caregiver Caregiver and from the patient's sister who has a power of title attorney And discussed with the caregiver that the sister can come and stay in the hospital by the patient's more comfortable with with persons patient is now very well to more clam down due to the mental conditions
[2018-07-26] MEDS: ACETAMINOPHEN 325 MG TABLET PO PRN ×2 (13:28→22:36)
[2018-07-26 15:22] LABS: ARTERIAL BLOOD BASE EXCESS 0.8 mmol/L; ARTERIAL BLOOD H2CO3 0.85 mmol/L (1.05-1.35); ARTERIAL BLOOD HCO3 22.7 mmol/L (20-24); ARTERIAL BLOOD O2 SATURATION 97.4 % (94-98); ARTERIAL BLOOD PCO2 28.3 mmHg (35-45); ARTERIAL BLOOD PH 7.52 (7.35-7.45); ARTERIAL BLOOD PO2 84.8 mmHg (80-100); ARTERIAL BLOOD TOTAL CO2 23.6 mmol/L (21-25)
[2018-07-26 15:25] LABS: ARTERIAL BLOOD FIO2 ROOM AIR
[2018-07-26] MEDS ORDERED: FLUTICASONE NASAL SPRAY 50 MCG/SPRY 120 SPRAY/16 GM NASL PRN (16:47)
[2018-07-26] MEDS: CEFEPIME 2 GM/D5W RTU 2 GM/50 ML RTUPB IV SCH ×2 (17:25→22:27)
[2018-07-26] MEDS ORDERED: AZITHROMYCIN 500 MG in DEXTROSE 5%-WATER 250 ML IV SCH (18:00)
[2018-07-26] MEDS ORDERED: PROTEIN SUPPLEMENT PO SCH (18:00)
[2018-07-26] MEDS ORDERED: OSELTAMIVIR PHOSPHATE 75 MG CAPSULE PO SCH (18:00)
[2018-07-26] MEDS ORDERED: HALOPERIDOL LACTATE INJ 5 MG/1 ML VIAL IM PRN (21:10)
[2018-07-26] MEDS ORDERED: FLUVOXAMINE MALEATE 50 MG PO SCH (22:00)
[2018-07-26] MEDS ORDERED: LEVONORGESTREL ETHIN ESTRADIOL PO SCH (22:00)
[2018-07-26] MEDS ORDERED: POLYETHYLENE GLYCOL 3350 POWDER 17 GM/1 PACKET PO SCH (22:00)
[2018-07-26] MEDS: DIVALPROEX SODIUM 250 MG TAB.SR.24H PO SCH (22:30)
[2018-07-26] MEDS: QUETIAPINE FUMARATE 100 MG TABLET PO SCH (22:31)
[2018-07-26] MEDS: DIVALPROEX SODIUM 500 MG TAB.SR.24H PO SCH (22:31)
[2018-07-26] MEDS: AZITHROMYCIN 500 MG in DEXTROSE 5%-WATER 250 ML IV SCH (22:32)
[2018-07-27 01:15] LABS: A TYPE INFLUENZA AG NEGATIVE (NEGATIVE); B INFLUENZA AG NEGATIVE (NEGATIVE)
[2018-07-27 05:29] LABS: MEAN CORPUSCULAR HEMOGLOBIN 32.6 pg (27.0-33.4); MEAN CORPUSCULAR HGB CONC 35.3 g/dL (32.0-36.0); MEAN CORPUSCULAR VOLUME 92 fl (80-97); PLATELET COUNT 116 10^3/uL (150-450); RED BLOOD COUNT 3.36 10^6/uL (3.72-5.28); RED CELL DISTRIBUTION WIDTH 13.4 % (11.5-14.0); WHITE BLOOD COUNT 6.2 10^3/uL (4.0-10.5)
[2018-07-27 06:07] LABS: ANION GAP 6 (5-19); BLOOD UREA NITROGEN 12 mg/dL (7-20); CALCIUM 8.3 mg/dL (8.4-10.2); CARBON DIOXIDE 24 mmol/L (22-30); CHLORIDE 105 mmol/L (98-107); GLUCOSE 84 mg/dL (75-110); POTASSIUM 3.9 mmol/L (3.6-5.0); SODIUM 134.8 mmol/L (137-145)
[2018-07-27 06:36] LABS: ABSOLUTE LYMPHOCYTES# (MANUAL) 2.4 10^3/uL (0.5-4.7); ABSOLUTE MONOCYTES # (MANUAL) 0.4 10^3/uL (0.1-1.4); ABSOLUTE NEUTROPHILS# (MANUAL) 3.3 10^3/uL (1.7-8.2); BAND NEUTROPHILS % (MANUAL) 2 % (3-5); BASOPHILS % (MANUAL) 0 % (0-2); EOSINOPHILS % (MANUAL) 2 % (0-6); LYMPHOCYTES % (MANUAL) 38 % (13-45); METAMYELOCYTES % (MANUAL) 1 % (0); MONOCYTES % (MANUAL) 6 % (3-13); PLATELET COMMENT DECREASED; RBC MORPHOLOGY COMMENT NORMO-CYTIC/CHROMIC; SEGMENTED NEUTROPHILS % (MAN) 50 % (42-78); TOTAL CELLS COUNTED 100; TOXIC GRANULATION SLIGHT
--- NOTE | 2018-07-27 09:10 | PDOC PROGRESS REPORT ---
Subjective Progress Note for:: 07/27/18 Subjective:: Feeling much better Remain afebrile Patient's white count is back to the normal Patient sister present at bedside no other concerned Reason For Visit: PNEUMONIA,FEVER Physical Exam Vital Signs: Temp Pulse Resp BP Pulse Ox 97.8 F 99 19 103/72 97 07/26/18 21:00 07/27/18 07:00 07/26/18 21:00 07/26/18 21:00 07/26/18 21:00 Intake & Output 07/26/18 07/27/18 07/28/18 06:59 06:59 06:59 Intake Total 300 Balance 300 Weight 73.1 kg General appearance: PRESENT: no acute distress, well-developed, well-nourished Head exam: PRESENT: atraumatic, normocephalic Eye exam: PRESENT: conjunctiva pink, EOMI, PERRLA. ABSENT: scleral icterus Ear exam: PRESENT: normal external ear exam Mouth exam: PRESENT: moist, tongue midline Neck exam: PRESENT: full ROM. ABSENT: carotid bruit, JVD, lymphadenopathy, thyromegaly Respiratory exam: PRESENT: clear to auscultation merari Cardiovascular exam: PRESENT: RRR. ABSENT: diastolic murmur, rubs, systolic murmur Vascular exam: PRESENT: normal capillary refill GI/Abdominal exam: PRESENT: normal bowel sounds, soft. ABSENT: distended, guarding, mass, organolmegaly, rebound, tenderness Rectal exam: PRESENT: deferred Neurological exam: PRESENT: alert, awake. ABSENT: motor sensory deficit Psychiatric exam: PRESENT: appropriate affect, normal mood. ABSENT: homicidal ideation, suicidal ideation Skin exam: PRESENT: dry, intact, warm. ABSENT: cyanosis, rash Results Laboratory Results: 07/27/18 05:00 07/27/18 05:00 07/26/18 07/26/18 07/27/18 15:08 17:00 05:00 WBC 6.2 RBC 3.36 L Hgb 11.0 L Hct 31.0 L MCV 92 MCH 32.6 MCHC 35.3 RDW 13.4 Plt Count 116 L Seg Neutrophils % Not Reportable Lymphocytes % Not Reportable Monocytes % Not Reportable Eosinophils % Not Reportable Basophils % Not Reportable Absolute Neutrophils Not Reportable Absolute Lymphocytes Not Reportable Absolute Monocytes Not Reportable Absolute Eosinophils Not Reportable Absolute Basophils Not Reportable Carbonic Acid 0.85 L HCO3/H2CO3 Ratio 26:1 ABG pH 7.52 H ABG pCO2 28.3 L ABG pO2 84.8 ABG HCO3 22.7 ABG O2 Saturation 97.4 ABG Base Excess 0.8 FiO2 ROOM AIR Sodium Potassium Chloride Carbon Dioxide Anion Gap BUN Creatinine Est GFR ( Amer) Est GFR (Non-Af Amer) Glucose Lactic Acid 1.7 Calcium 07/27/18 05:00 WBC RBC Hgb Hct MCV MCH MCHC RDW Plt Count Seg Neutrophils % Lymphocytes % Monocytes % Eosinophils % Basophils % Absolute Neutrophils Absolute Lymphocytes Absolute Monocytes Absolute Eosinophils Absolute Basophils Carbonic Acid HCO3/H2CO3 Ratio ABG pH ABG pCO2 ABG pO2 ABG HCO3 ABG O2 Saturation ABG Base Excess FiO2 Sodium 134.8 L Potassium 3.9 Chloride 105 Carbon Dioxide 24 Anion Gap 6 BUN 12 Creatinine 0.40 L Est GFR ( Amer) > 60 Est GFR (Non-Af Amer) > 60 Glucose 84 Lactic Acid Calcium 8.3 L Impressions: Chest X-Ray 07/26/18 12:30 IMPRESSION: Increasing right lower lobe pneumonia. Assessment & Plan - Diagnosis (1) Pneumonia Qualifiers: Lung location: unspecified part of lung Is this a current diagnosis for this admission?: Yes Plan: IV antibiotic (2) Fever Qualifiers: Fever type: unspecified Qualified Code(s): R50.9 - Fever, unspecified Is this a current diagnosis for this admission?: Yes Plan: Due to the above conditions Patients have a high suspicious of the flulike symptoms given the flu test was negative we will cover with the Tamiflu in the beginning but with the persistent with a pneumonia and elevated white count most likely a bacterial we will discontinues to Tamiflu (3) Mental retardation Is this a current diagnosis for this admission?: Yes (4) Seizures Is this a current diagnosis for this admission?: Yes Plan: continue a current medications - Time Time Spent with patient: 15-24 minutes Medications reviewed and adjusted accordingly: Yes Anticipated discharge: Other Within: within 24 hours - Plan Summary Plan Summary: Continues to IV antibiotics Patient's p.o. intake is good DC the IV fluid Discussed with the sister on the bedside
[2018-07-27] MEDS: SENNOSIDES/DOCUSATE 8.6-50 MG 1 EACH TABLET PO SCH (09:12)
[2018-07-27] MEDS: ENOXAPARIN SODIUM INJ 40 MG/0.4 ML DISP.SYRIN SUBCUT SCH (09:12)
[2018-07-27] MEDS: CHOLECALCIFEROL (D3) 1,000 UNIT TABLET PO SCH (09:12)
[2018-07-27] MEDS: DIVALPROEX SODIUM 500 MG TAB.SR.24H PO SCH ×2 (09:14→22:34)
[2018-07-27] MEDS ORDERED: SENNOSIDES/DOCUSATE 8.6-50 MG 1 EACH TABLET PO SCH (10:00)
[2018-07-27] MEDS ORDERED: (PENDING PHARMACY ID) (Sennosides [Senna] 2 TAB) PO SCH (10:00)
[2018-07-27] MEDS: CEFEPIME HCL 2 GM in DEXTROSE 5%-WATER 50 ML IV SCH ×2 (11:12→22:34)
[2018-07-27] MEDS: AZITHROMYCIN 500 MG in DEXTROSE 5%-WATER 250 ML IV SCH (22:34)
[2018-07-27] MEDS: QUETIAPINE FUMARATE 100 MG TABLET PO SCH (22:34)
[2018-07-27] MEDS: DIVALPROEX SODIUM 250 MG TAB.SR.24H PO SCH (22:34)
[2018-07-28 07:01] LABS: MEAN CORPUSCULAR HEMOGLOBIN 32.9 pg (27.0-33.4); MEAN CORPUSCULAR HGB CONC 35.5 g/dL (32.0-36.0); MEAN CORPUSCULAR VOLUME 93 fl (80-97); PLATELET COUNT 144 10^3/uL (150-450); RED BLOOD COUNT 3.35 10^6/uL (3.72-5.28); RED CELL DISTRIBUTION WIDTH 13.5 % (11.5-14.0); WHITE BLOOD COUNT 5.6 10^3/uL (4.0-10.5)
[2018-07-28 07:17] LABS: ANION GAP 6 (5-19); BLOOD UREA NITROGEN 10 mg/dL (7-20); CALCIUM 7.9 mg/dL (8.4-10.2); CARBON DIOXIDE 24 mmol/L (22-30); CHLORIDE 104 mmol/L (98-107); GLUCOSE 77 mg/dL (75-110); POTASSIUM 3.8 mmol/L (3.6-5.0); SODIUM 134.1 mmol/L (137-145)
[2018-07-28] MEDS: DIVALPROEX SODIUM 500 MG TAB.SR.24H PO SCH (08:05)
--- NOTE | 2018-07-28 08:20 | RADIOLOGY REPORT (SQ) ---
EXAM DESCRIPTION: CHEST SINGLE VIEW COMPLETED DATE/TIME: 07/28/2018 7:56 am REASON FOR STUDY: pnemonia COMPARISON: Chest films 06/30/2017, 07/25/2018, 07/26/2018 EXAM PARAMETERS: NUMBER OF VIEWS: One view. TECHNIQUE: Single frontal radiographic view of the chest acquired. RADIATION DOSE: NA LIMITATIONS: None. FINDINGS: LUNGS AND PLEURA: Slight increase in right pleural effusion compared to previous studies, small right pleural effusion in the lateral and posterior costophrenic sulcus. There is right lower lobe airspace disease atelectasis versus pneumonia. Left lung grossly clear. No left pleural effusion. No right or left pneumothorax MEDIASTINUM AND HILAR STRUCTURES: No masses. Contour normal. HEART AND VASCULAR STRUCTURES: Heart normal in size. Normal vasculature. BONES: Convex rightward thoracic curvature HARDWARE: None in the chest. OTHER: No other significant finding. IMPRESSION: Right basilar consolidation worrisome for pneumonia. Slight increase in right pleural e ffusion TECHNICAL DOCUMENTATION: JOB ID: [id number] [employer]- All Rights Reserved Reading location - IP/workstation name: [email or web address]
[2018-07-28 08:24] LABS: ABSOLUTE LYMPHOCYTES# (MANUAL) 2.4 10^3/uL (0.5-4.7); ABSOLUTE MONOCYTES # (MANUAL) 0.3 10^3/uL (0.1-1.4); ABSOLUTE NEUTROPHILS# (MANUAL) 2.7 10^3/uL (1.7-8.2); BAND NEUTROPHILS % (MANUAL) 3 % (3-5); BASOPHILS % (MANUAL) 0 % (0-2); EOSINOPHILS % (MANUAL) 3 % (0-6); LYMPHOCYTES % (MANUAL) 43 % (13-45); MONOCYTES % (MANUAL) 5 % (3-13); SEGMENTED NEUTROPHILS % (MAN) 44 % (42-78); TOTAL CELLS COUNTED 100
[2018-07-28 08:27] LABS: MYELOCYTES % (MANUAL) 2 % (0); PLATELET COMMENT DECREASED
[2018-07-28 08:47] VITALS: BP 111/75
[2018-07-28] MEDS: ENOXAPARIN SODIUM INJ 40 MG/0.4 ML DISP.SYRIN SUBCUT SCH (09:13)
[2018-07-28] MEDS: CHOLECALCIFEROL (D3) 1,000 UNIT TABLET PO SCH (09:20)
[2018-07-28] MEDS: SENNOSIDES/DOCUSATE 8.6-50 MG 1 EACH TABLET PO SCH (09:20)
[2018-07-28] MEDS: CEFEPIME HCL 2 GM in DEXTROSE 5%-WATER 50 ML IV SCH (09:21)
--- NOTE | 2018-07-28 10:14 | PDOC DISCHARGE SUMMARY ---
General - Admit/Disc Date/PCP Admission Date/Primary Care Provider: 07/26/18 13:41 PAUL HIGGINS MD Discharge Date: 07/28/18 - Discharge Diagnosis (1) Pneumonia Is this a current diagnosis for this admission?: Yes Summary: Patient is finished IV antibiotic and remain afebrile and his sisters really wants to take her back to the rehab facility because of the patient is more agitated here Will try the p.o. antibiotic course for 7 more days repeat the chest x-ray on a Tuesday Discussed with the sister about the today's chest x-ray finding and also discussed the nursing staff at the prison facilities today to continue to monitor the patient over there Please any fever any chills any short of breath bring it back to the ER (2) Fever Is this a current diagnosis for this admission?: Yes Summary: Currently all resolved (3) Mental retardation Is this a current diagnosis for this admission?: Yes (4) Seizures Is this a current diagnosis for this admission?: Yes Summary: Current medications - Additional Information Resuscitation Status: Full Code Discharge Diet: Cardiac Discharge Activity: Activity As Tolerated Prescriptions: Azithromycin [Zithromax 250 mg Tablet] 250 mg PO ASDIR PRN #4 tablet PRN Reason: Cefdinir [Omnicef 300 mg Capsule] 1 cap PO BID #14 capsule Guaifenesin [Mucinex] 600 mg PO BID #14 tablet.[facility] Medications: Cholecalciferol (Vitamin D3) [Vitamin D3 1000 Unit Tablet] 1,000 unit PO DAILY 11/25/16 Divalproex Sodium [Depakote ER 250 mg Tablet] 250 mg PO QHS 11/25/16 Divalproex Sodium [Depakote ER] 500 mg PO QAM 11/25/16 Divalproex Sodium [Depakote ER] 500 mg PO QHS 11/25/16 Fluticasone Propionate [Flonase Nasal [place] 50 Mcg/[place] 16 gm] 1 spray NASL Q12HP PRN 11/25/16 Fluvoxamine Maleate 50 mg PO QHS 11/25/16 Levonorgestrel-Ethin Estradiol [Introvale 0.15-0.03 mg Tablet] 1 tab PO QHS 11/25/16 Polyethylene Glycol 3350 [Miralax Powder 17 gm/Packet] 8.5 gm PO Q2DAYS@2200 11/25/16 Prostat Sf Liquids 1 Oz 30 ml PO TID 11/25/16 Quetiapine Fumarate [Seroquel 100 mg Tablet] 150 mg PO QHS 11/25/16 Sennosides [Senna] 2 tab PO DAILY 11/25/16 Azithromycin [Zithromax 250 mg Tablet] 250 mg PO ASDIR PRN 07/26/18 Ipratropium/Albuterol Sulfate [Duoneb 3 ml Ampul] 3 ml NEB RTQ6HP PRN 07/26/18 Oseltamivir Phosphate [Tamiflu 75 mg Capsule] 75 mg PO BID 07/26/18 Azithromycin [Zithromax 250 mg Tablet] 250 mg PO ASDIR PRN #4 tablet 07/28/18 Cefdinir [Omnicef 300 mg Capsule] 1 cap PO BID #14 capsule 07/28/18 Guaifenesin [Mucinex] 600 mg PO BID #14 tablet.sa 07/28/18 History of Present Illness History of Present Illness: DILLON YAP is a 32 year old female Ms. Yap is a 32yo female with history of CP, IDD and epilepsy who presents today with her caregivers for 1 day FU of fever, cough and flu like symptoms. She began to have runny nose and decreased appetite on Tuesday. Tuesday, she developed cough, not productive and 101.8 fever, axillary. She was febrile in clinic yesterday at 100.5 after being given Tylenol. She was sent for CXR that showed patchy airspace disease likely peumonia. CBC showed WBC 26 and Neutrophils 22. She was started on Tamiflu, Zithromax and Rocephin. She had 2 doses of Zithromax last night and was given 1g Rocephin IM this morning. Caregivers have noticed she has had increase in cough since yesterday, have been pushing more fluids.She has no wheezing. She had one loose stool yesterda. She has no N/V. Her caregivers say no one else at the center has recently tested positive for flu or has similar symptoms. She gets menses q3 mo. Hospital Course Hospital Course: This is a 32-year-old female mental retardation seizures disorders currently live in a prison facility brought in the office for the fever and patient's diagnosed with a pneumonia Patient initially started on IM Rocephin and a p.o. antibiotics patient's chest x-ray is consistent with a pneumonia and a white count was 26,000 decided to admit in the hospital Patient was giving the IV antibiotics and patient responds very well with that More than 24 hours patient remained afebrile patient's white count is all normal patient's chest x-ray still consistent with pneumonia but clinically patient looks much better Patient sisters on the bedside and prefer to take back to the prison well patient is doing well patient is more comfortable at the prison rather than the hospitals I think patient is currently doing well will remain afebrile given the chest x- ray is not improving but I think patient's O2 sat is normal p.o. intake is good we will try close monitor the patient's to p.o. antibiotics Following a 3 days in office we will repeat the chest x-ray on a Tuesday Physical Exam Vital Signs: Temp Pulse Resp BP Pulse Ox 98.1 F 113 H 22 H 111/75 96 07/28/18 08:46 07/28/18 08:46 07/28/18 08:46 07/28/18 08:46 07/28/18 08:46 Intake & Output 07/27/18 07/28/18 07/29/18 06:59 06:59 06:59 Intake Total 300 1350 Balance 300 1350 Weight 73.1 kg 73 kg General appearance: PRESENT: no acute distress, well-developed, well-nourished Head exam: PRESENT: atraumatic, normocephalic Eye exam: PRESENT: conjunctiva pink, EOMI, PERRLA. ABSENT: scleral icterus Ear exam: PRESENT: normal external ear exam Mouth exam: PRESENT: moist, tongue midline Neck exam: PRESENT: full ROM. ABSENT: carotid bruit, JVD, lymphadenopathy, thyromegaly Respiratory exam: PRESENT: clear to auscultation merari Cardiovascular exam: PRESENT: RRR. ABSENT: diastolic murmur, rubs, systolic murmur Vascular exam: PRESENT: normal capillary refill GI/Abdominal exam: PRESENT: normal bowel sounds, soft. ABSENT: distended, guarding, mass, organolmegaly, rebound, tenderness Rectal exam: PRESENT: deferred Neurological exam: PRESENT: alert, awake. ABSENT: motor sensory deficit Psychiatric exam: PRESENT: appropriate affect, normal mood. ABSENT: homicidal ideation, suicidal ideation Skin exam: PRESENT: dry, intact, warm. ABSENT: cyanosis, rash Results Laboratory Results: 07/28/18 04:45 07/28/18 04:45 07/28/18 07/28/18 04:45 04:45 WBC 5.6 RBC 3.35 L Hgb 11.0 L Hct 31.0 L MCV 93 MCH 32.9 MCHC 35.5 RDW 13.5 Plt Count 144 L Seg Neutrophils % Not Reportable Lymphocytes % Not Reportable Monocytes % Not Reportable Eosinophils % Not Reportable Basophils % Not Reportable Absolute Neutrophils Not Reportable Absolute Lymphocytes Not Reportable Absolute Monocytes Not Reportable Absolute Eosinophils Not Reportable Absolute Basophils Not Reportable Sodium 134.1 L Potassium 3.8 Chloride 104 Carbon Dioxide 24 Anion Gap 6 BUN 10 Creatinine 0.47 L Est GFR ( Amer) > 60 Est GFR (Non-Af Amer) > 60 Glucose 77 Calcium 7.9 L Impressions: Chest X-Ray 07/28/18 00:00 IMPRESSION: Right basilar consolidation worrisome for pneumonia. Slight increase in right pleural effusion Qualifiers - * PATIENT BEING DISCHARGED WITH ANY OF THE FOLLOWING DIAGNOSIS: No VTE patient discharged on overlapping Therapy?: Yes Plan Time Spent: Greater than 30 Minutes - Currently doing well
[2018-07-28] MEDS ORDERED: AZITHROMYCIN 250 MG TABLET PO ONE (10:15)
[2018-07-31 13:35] LABS: PATH REVIEW PATHOLOGIST REVIEWED
== END 2018-07-28 11:15 | DRG 195 ==
LOC: ER 11:50 → EH 13:41 → 4S 19:01
PROVIDERS: ADMIT Family Medicine; ATTEND Family Medicine
DX: J18.9 Pneumonia, unspecified organism (principal); G80.9 Cerebral palsy, unspecified; F41.1 Generalized anxiety disorder; F79 Unspecified intellectual disabilities; G40.909 Epilepsy, unspecified, not intractable, without status epilepticus; K21.9 Gastro-esophageal reflux disease without esophagitis; Z87.01 Personal history of pneumonia (recurrent); Z88.8 Allergy status to other drugs, medicaments and biological substances
CPT/HCPCS: 36415; 36600; 71045; 71046; 80048; 80053; 82803; 83605; 85025; 87040; 87804; J0456; J0692; J1650; J3490; J7030; J7060

== ENCOUNTER → 2018-07-26 | Outpatient (CLI) | payer MEDICARE, OTHER, MEDICAID ==
[2018-07-26 12:29] LABS: ABSOLUTE LYMPHOCYTES (AUTO) 1.3 10^3/uL (0.5-4.7); ABSOLUTE MONOCYTES (AUTO) 1.5 10^3/uL (0.1-1.4); ABSOLUTE NEUT (AUTO) 15.7 10^3/uL (1.7-8.2); BASOPHILS % (AUTO) 0.1 % (0-2); EOSINOPHILS % (AUTO) 0.2 % (0-6); HEMATOCRIT 34.5 % (36.0-47.0); LYMPHOCYTES % (AUTO) 6.9 % (13-45); MEAN CORPUSCULAR HEMOGLOBIN 32.4 pg (27.0-33.4); MEAN CORPUSCULAR HGB CONC 34.9 g/dL (32.0-36.0); MEAN CORPUSCULAR VOLUME 93 fl (80-97); MONOCYTES % (AUTO) 7.9 % (3-13); PLATELET COUNT 132 10^3/uL (150-450); RED BLOOD COUNT 3.71 10^6/uL (3.72-5.28); RED CELL DISTRIBUTION WIDTH 13.3 % (11.5-14.0); SEGMENTED NEUTROPHILS % (AUTO) 84.9 % (42-78); TOTAL CELLS COUNTED % (AUTO) 100 %; WHITE BLOOD COUNT 18.5 10^3/uL (4.0-10.5)
== END ==
LOC: OD 10:09
PROVIDERS: ATTEND Family Medicine
DX: D72.828 Other elevated white blood cell count (principal)
CPT/HCPCS: 36415; 85025

== ENCOUNTER → 2018-07-31 | Outpatient (CLI) | payer MEDICARE, OTHER, MEDICAID ==
--- NOTE | 2018-07-31 12:02 | RADIOLOGY REPORT (SQ) ---
EXAM DESCRIPTION: CHEST PA/LATERAL COMPLETED DATE/TIME: 07/31/2018 10:49 am REASON FOR STUDY: OTHER GENERAL SYMPTOMS AND SIGNS COMPARISON: 07/28/2018 EXAM PARAMETERS: NUMBER OF VIEWS: two views TECHNIQUE: Digital Frontal and Lateral radiographic views of the chest acquired. RADIATION DOSE: NA LIMITATIONS: none FINDINGS: LUNGS AND PLEURA: As on the previous examination, right lower lung patchy consolidation, may be on the basis of pneumonia. Small right pleural effusion, unchanged finding. The left lung re glen clear. No pneumothorax. MEDIASTINUM AND HILAR STRUCTURES: No masses or contour abnormalities. HEART AND VASCULAR STRUCTURES: Stable appearance. No evidence for failure. BONES: No acute findings. HARDWARE: None in the chest. OTHER: No other significant finding. IMPRESSION: 1. No significant interval changes since the prior study dated 07/28/2018. Small right pleural effusion and right lower lung patchy consolidation, may represent pneumonia. TECHNICAL DOCUMENTATION: JOB ID: [id number] [employer]- All Rights Reserved Reading location - IP/workstation name: [email or web address]
== END ==
LOC: OD 10:33
PROVIDERS: ATTEND Physician Assistant
DX: R68.89 Other general symptoms and signs (principal)
CPT/HCPCS: 71046

== ENCOUNTER → 2020-03-12 | Outpatient (CLI) | payer MEDICARE, OTHER, MEDICAID ==
[2020-03-12 14:13] LABS: ABSOLUTE EOSINOPHILS # (AUTO) 0.1 10^3/uL (0.0-0.6); ABSOLUTE LYMPHOCYTES (AUTO) 2.1 10^3/uL (0.5-4.7); ABSOLUTE MONOCYTES (AUTO) 1.7 10^3/uL (0.1-1.4); ABSOLUTE NEUT (AUTO) 12.1 10^3/uL (1.7-8.2); BASOPHILS % (AUTO) 0.2 % (0-2); EOSINOPHILS % (AUTO) 0.4 % (0-6); HEMATOCRIT 38.2 % (36.0-47.0); HEMOGLOBIN 12.9 g/dL (12.0-15.5); LYMPHOCYTES % (AUTO) 13.3 % (13-45); MEAN CORPUSCULAR HEMOGLOBIN 32.3 pg (27.0-33.4); MEAN CORPUSCULAR HGB CONC 33.9 g/dL (32.0-36.0); MEAN CORPUSCULAR VOLUME 95 fl (80-97); MONOCYTES % (AUTO) 10.4 % (3-13); PLATELET COUNT 124 10^3/uL (150-450); RED BLOOD COUNT 4.01 10^6/uL (3.72-5.28); RED CELL DISTRIBUTION WIDTH 13.4 % (11.5-14.0); SEGMENTED NEUTROPHILS % (AUTO) 75.7 % (42-78); TOTAL CELLS COUNTED % (AUTO) 100 %
--- NOTE | 2020-03-12 14:34 | RADIOLOGY REPORT (SQ) ---
EXAM DESCRIPTION: CHEST 2 VIEWS IMAGES COMPLETED DATE/TIME: 03/12/2020 2:24 pm REASON FOR STUDY: R05 COUGH R50.9 FEVER, UNSPECIFIED COMPARISON: None. EXAM PARAMETERS: NUMBER OF VIEWS: Two views. TECHNIQUE: An AP view of the chest was obtained. RADIATION DOSE: NA LIMITATIONS: The patient is rotated. FINDINGS: LUNGS AND PLEURA: Patchy opacities in the inferior aspect of the left lung. MEDIASTINUM AND HILAR STRUCTURES: No mediastinal or hilar contour abnormality. HEART AND VASCULAR STRUCTURES: The cardiac silhouette is borderline enlarged. BONES: No acute findings. HARDWARE: None in the chest. OTHER: No other finding. IMPRESSION: Patchy opacities in the inferior aspect of the left lung. Correlation with clinical fin dings to exclude a pneumonia is recommended. TECHNICAL DOCUMENTATION: JOB ID: [id number] [employer]- All Rights Reserved Reading location - IP/workstation name: [email or web address]
[2020-03-12 14:39] LABS: ALBUMIN 3.1 g/dL (3.5-5.0); ALKALINE PHOSPHATASE 44 U/L (38-126); ANION GAP 5 (5-19); ASPARTATE AMINO TRANSFERASE 19 U/L (14-36); BILIRUBIN,DIRECT 0.1 mg/dL (0.0-0.4); BILIRUBIN,TOTAL 0.6 mg/dL (0.2-1.3); BLOOD UREA NITROGEN 14 mg/dL (7-20); CALCIUM 8.6 mg/dL (8.4-10.2); CARBON DIOXIDE 24 mmol/L (22-30); CHLORIDE 103 mmol/L (98-107); GLUCOSE 91 mg/dL (75-110); POTASSIUM 4.1 mmol/L (3.6-5.0); TOTAL PROTEIN 6.3 g/dL (6.3-8.2)
== END ==
LOC: CAR 13:41
PROVIDERS: ATTEND Family Medicine
DX: R05 Cough (principal); R50.9 Fever, unspecified
CPT/HCPCS: 71046; 80053; 85025

== ENCOUNTER 2020-04-03 11:08 | Emergency (ER) | payer MEDICARE, OTHER, MEDICAID ==
[2020-04-03 11:16] VITALS: BP 145/112
--- NOTE | 2020-04-03 13:14 | ER Document Report ---
ED Medical Screen (RME) - General Chief Complaint: Cough Stated Complaint: COUGH Time Seen by Provider: 04/03/20 13:08 Primary Care Provider: PAUL HIGGINS MD [Primary Care Provider] - Follow up as needed Mode of Arrival: Wheelchair Information source: Outside Facility Records Notes: 34-year-old female presented to ED for complaint of cough congestion low-grade fever. She is a resident at [facility]. She was seen here in the beginning of March diagnosed with pneumonia she was started on Augmentin for 7 days starting on March 12. She did does get Covid test every Tuesday which she was negative on Tuesday on the way to the hospital she had a rapid Covid test which was negative to. Afebrile right now with scan of 99.1. We will get blood urine and chest x-ray and she will be seen by another provider. I have greeted and performed a rapid initial assessment of this patient. A comprehensive ED assessment and evaluation of the patient, analysis of test results and completion of medical decision making process will be conducted by an additional ED providers. TRAVEL OUTSIDE OF THE [place] IN LAST 30 DAYS: No - Related Data Allergies/Adverse Reactions: Benzodiazepines Allergy (Verified 07/26/18 11:51) chloral hydrate [Chloral Hydrate] Allergy (Verified 07/26/18 11:51) topiramate [From Topamax] Allergy (Verified 07/26/18 11:51) Past Medical History - Social History Family history: Reviewed & Not Pertinent Pulmonary Medical History: Reports: Hx Pneumonia Neurological Medical History: Reports: Hx Seizures Renal/ Medical History: Denies: Hx Peritoneal Dialysis GI Medical History: Reports: Hx Gastroesophageal Reflux Disease - Immunizations Hx Diphtheria, Pertussis, Tetanus Vaccination: Yes Physical Exam - Vital signs Vitals: Pulse Resp BP Pulse Ox 110 H 20 145/112 H 100 04/03/20 11:15 04/03/20 11:15 04/03/20 11:15 04/03/20 11:15 Course - Vital Signs Vital signs: Temp Pulse Resp BP Pulse Ox 110 H 20 145/112 H 100 04/03/20 11:15 04/03/20 11:15 04/03/20 11:15 04/03/20 11:15 Doctor's Discharge - Discharge Referrals: PAUL HIGGINS MD [Primary Care Provider] - Follow up as needed
[2020-04-03 14:07] LABS: ABSOLUTE BASOPHILS # (AUTO) 0.1 10^3/uL (0.0-0.2); ABSOLUTE EOSINOPHILS # (AUTO) 0.1 10^3/uL (0.0-0.6); ABSOLUTE LYMPHOCYTES (AUTO) 2.1 10^3/uL (0.5-4.7); ABSOLUTE MONOCYTES (AUTO) 1.2 10^3/uL (0.1-1.4); ABSOLUTE NEUT (AUTO) 7.2 10^3/uL (1.7-8.2); BASOPHILS % (AUTO) 1.1 % (0-2); EOSINOPHILS % (AUTO) 0.9 % (0-6); HEMATOCRIT 36.6 % (36.0-47.0); HEMOGLOBIN 13.2 g/dL (12.0-15.5); LYMPHOCYTES % (AUTO) 19.6 % (13-45); MEAN CORPUSCULAR HEMOGLOBIN 33.6 pg (27.0-33.4); MEAN CORPUSCULAR HGB CONC 36.1 g/dL (32.0-36.0); MEAN CORPUSCULAR VOLUME 93 fl (80-97); PLATELET COUNT 149 10^3/uL (150-450); RED BLOOD COUNT 3.93 10^6/uL (3.72-5.28); RED CELL DISTRIBUTION WIDTH 13.1 % (11.5-14.0); SEGMENTED NEUTROPHILS % (AUTO) 67.4 % (42-78); TOTAL CELLS COUNTED % (AUTO) 100 %; WHITE BLOOD COUNT 10.7 10^3/uL (4.0-10.5)
--- NOTE | 2020-04-03 14:23 | RADIOLOGY REPORT (SQ) ---
EXAM DESCRIPTION: CHEST 2 VIEWS IMAGES COMPLETED DATE/TIME: 04/03/2020 2:14 pm REASON FOR STUDY: cough congesiton neg covid today COMPARISON: 03/12/2020 EXAM PARAMETERS: NUMBER OF VIEWS: two views TECHNIQUE: Digital Frontal and Lateral radiographic views of the chest acquired. RADIATION DOSE: NA LIMITATIONS: none FINDINGS: LUNGS AND PLEURA: Interval resolution patchy of left lung base opacities. No acute pulmo nary consolidation. No pneumothorax or pleural effusion. MEDIASTINUM AND HILAR STRUCTURES: No masses or contour abnormalities. HEART AND VASCULAR STRUCTURES: Heart normal size. No evidence for failure. BONES: Marked dextroconvex scoliosis. HARDWARE: None in the chest. OTHER: No other significant finding. IMPRESSION: 1. Interval resolution of the patchy left lung base opacities since the prior study gerardo ed 03/12/2020. TECHNICAL DOCUMENTATION: JOB ID: [id number] 2010 [employer]- All Rights Reserved Reading location - IP/workstation name: [email or web address]
[2020-04-03 14:26] LABS: ALKALINE PHOSPHATASE 38 U/L (38-126); ANION GAP 7 (5-19); ASPARTATE AMINO TRANSFERASE 26 U/L (14-36); BILIRUBIN,DIRECT 0.1 mg/dL (0.0-0.4); BILIRUBIN,TOTAL 0.6 mg/dL (0.2-1.3); BLOOD UREA NITROGEN 15 mg/dL (7-20); CALCIUM 8.5 mg/dL (8.4-10.2); CARBON DIOXIDE 23 mmol/L (22-30); CHLORIDE 98 mmol/L (98-107); GLUCOSE 86 mg/dL (75-110); POTASSIUM 4.5 mmol/L (3.6-5.0); TOTAL PROTEIN 6.4 g/dL (6.3-8.2)
[2020-04-03] MEDS ORDERED: DEXAMETHASONE SOD PHOS INJ 10 MG/1 ML VIAL IV ONE (15:00)
[2020-04-03] MEDS ORDERED: NORMAL SALINE 1000 ML 1,000 ML IV ONE (15:02)
--- NOTE | 2020-04-03 15:08 | ER Document Report ---
ED Respiratory Problem - General Chief Complaint: Cough Stated Complaint: COUGH Time Seen by Provider: 04/03/20 13:08 Primary Care Provider: PAUL HIGGINS MD [Primary Care Provider] - Follow up as needed Mode of Arrival: Wheelchair Notes: CHIEF COMPLAINT: Continuing cough HPI: 34-year-old female brought from her [facility] facility for evaluation of continued cough. Subjective fevers over the last 1 to 2 days. They have been giving Robitussin and Benadryl for the cough. Patient had been diagnosed with pneumonia at the beginning of March and was on Augmentin for 7 days. She oc casionally has some wheezing. They indicate that they spoke with the primary doctor who informed them to come to the ER today for a chest x-ray and evaluation. No fever today. Patient is at baseline mental status per the caregiving nurse with her. ROS: See HPI - all other systems were reviewed and are otherwise negative Constitutional: no fever Eyes: no drainage, no blurred vision ENT: + runny nose Cardiovascular: no chest pain Resp: no SOB, + cough GI: no vomiting, no diarrhea Integumentary: no rash Allergy: no hives MEDICATIONS: I agree with the patient medications as charted by the RN. ALLERGIES: I agree with the allergies as charted by the RN. PAST MEDICAL HISTORY/PAST SURGICAL HISTORY: Reviewed and agree as charted by RN. SOCIAL HISTORY: Reviewed and agree as charted by RN. FAMILY HISTORY: No significant familial comorbid conditions directly related to patient complaint EXAM: Reviewed vital signs as charted by RN. CONSTITUTIONAL: Alert and oriented to name only. Well-appearing; well-nourished HEAD: Normocephalic; atraumatic EYES: PERRL; Conjunctivae clear, sclerae non-icteric ENT: normal nose; no rhinorrhea; moist mucous membranes; pharynx without lesions noted, no uvula edema or deviation, no tonsillar hypertrophy, phonation normal NECK: Supple without meningismus; non-tender; no cervical lymphadenopathy, no masses CARD: RRR; no murmurs, no clicks, no rubs, no gallops; symmetric distal pulses RESP: Normal chest excursion without splinting or tachypnea; breath sounds clear and equal bilaterally; no wheezes, no rhonchi, no rales, pulse oximetry 96% on room air not hypoxic ABD/GI: Normal bowel sounds; non-distended; soft, non-tender, no rebound, no guarding; no palpable organomegaly or masses. BACK: The back appears normal EXT: Spasticity noted in the extremities SKIN: Normal color for age and race; warm; dry; good turgor; no acute lesions noted NEURO: Limited exam by patient mental status PSYCH: The patient's mood and manner are at baseline per caregiver. Grooming and personal hygiene are appropriate. MDM: 34-year-old female brought for evaluation of continuing cough over the last 3 weeks. Has been treated with a course of Augmentin for pneumonia. Subjective fevers over the last 1 to 2 days. Patient chest x-ray today does not reveal evidence of pneumonia in fact reveals evidence of improvement from prior chest x-ray. Will give patient a dose of Decadron here for the wheezing issues, 3 days of Decadron once daily. Caregiver with the patient indicates that they do have a nebulizer with albuterol but is very difficult because patient is combative and somewhat behavioral to utilize the masks. I will write him for an MDI with a spacer and a mask as the shorter timeframe to give this will likely result in an improved inhalation of the medication. They will follow-up with primary care provider. They indicate that they are not concerned about UTI symptoms and the patient. TRAVEL OUTSIDE OF THE [place] IN LAST 30 DAYS: No - Related Data Allergies/Adverse Reactions: Benzodiazepines Allergy (Verified 07/26/18 11:51) chloral hydrate [Chloral Hydrate] Allergy (Verified 07/26/18 11:51) topiramate [From Topamax] Allergy (Verified 07/26/18 11:51) Past Medical History - General Information source: Outside Facility Records - Social History Smoking Status: Unknown if Ever Smoked Family History: Reviewed & Not Pertinent Pulmonary Medical History: Reports: Hx Pneumonia Neurological Medical History: Reports: Hx Seizures Renal/ Medical History: Denies: Hx Peritoneal Dialysis GI Medical History: Reports: Hx Gastroesophageal Reflux Disease - Immunizations Hx Diphtheria, Pertussis, Tetanus Vaccination: Yes Physical Exam - Vital signs Vitals: Pulse Resp BP Pulse Ox 110 H 20 145/112 H 100 04/03/20 11:15 04/03/20 11:15 04/03/20 11:15 04/03/20 11:15 Course - Re-evaluation Re-evalutation: 04/03/20 15:08 As I was reviewing the patient's labs she was noted to be mildly hyponatremic with a sodium of 127. On review of the records this is not completely normal for the patient she has been as low as 130. Will give a one-time bolus of normal saline here. We will also give Decadron here today to treat patient's bronchospastic complaint. 04/03/20 15:16 Patient was noted to be mildly tachycardic and hypertensive but patient is somewhat agitated in the room will have nursing recheck vital signs prior to discharge and notify me of abnormalities - Vital Signs Vital signs: Temp Pulse Resp BP Pulse Ox 110 H 20 145/112 H 100 04/03/20 11:15 04/03/20 11:15 04/03/20 11:15 04/03/20 11:15 - Laboratory Results Result Diagrams: 04/03/20 13:58 04/03/20 13:58 Laboratory Results Interpreted: 04/03/20 04/03/20 13:58 13:58 WBC 10.7 H MCH 33.6 H MCHC 36.1 H Plt Count 149 L Sodium 127.6 L Creatinine 0.46 L Albumin 3.0 L Critical Laboratory Results Reviewed: No Critical Results - Radiology Results Critical Radiology Results Reviewed: No Critical Results Discharge - Discharge Clinical Impression: Acute bronchospasm, Hyponatremia Condition: Stable Disposition: HOME, SELF-CARE Additional Instructions: Utilize the albuterol metered-dose inhaler with the spacer and mask to give albuterol for wheezing. It would likely be easier to hold this to the patient's face for the 1 to 2 puffs every 4 hours for wheezing. Take the Decadron once daily over the next 3 days to help with wheezing. Continue to give Robitussin and Benadryl for coughing. Follow-up with the primary care provider for the patient regarding further treatment options if patient's cough continues but chest x-ray today showed resolution of the pneumonia. Patient was noted to have a mildly low sodium today, have this addressed with the primary care provider for further management Prescriptions: Dexamethasone [Decadron 4 Mg Tablet] 4 mg PO DAILY #3 tablet Albuterol Sulfate [Proair HFA Inhalation Aerosol 8.5 gm MDI] 2 puff IH Q4H PRN #1 mdi PRN Reason: For Wheezing Referrals: PAUL HIGGINS MD [Primary Care Provider] - Follow up as needed
== END 2020-04-03 16:16 | disposition home or self-care (01) ==
LOC: ER 11:08
DX: J98.01 Acute bronchospasm (principal); E87.1 Hypo-osmolality and hyponatremia; R05 Cough; R50.9 Fever, unspecified; R06.2 Wheezing
CPT/HCPCS: 99284; 96361; 96374; 36415; 85025; 80053; 71046; J7030; J1100